=== PATIENT | male | born 1975 | race American Indian/Alaskan Native ===

== ENCOUNTER 2018-10-08 11:45 | Inpatient (IN) | payer MEDICAID ==
[2018-10-08] MEDS ORDERED: APRESOLINE IV ONE ×2 (12:57→15:27)
[2018-10-08] MEDS ORDERED: DUONEB *Not for PRN Use IH ONE (12:57)
[2018-10-08] MEDS ORDERED: SOLU-Medrol IV ONE (12:57)
--- NOTE | 2018-10-08 13:10 | Emergency Department Report ---
HPI - General Chief Complaint: Dyspnea/Respdistress Time Seen by Provider: 10/08/18 12:34 - HPI HPI: 43-year-old male presents to the emergency department, sent in by his primary care office, with complaint of shortness of breath. Patient has a past medical history of hypertension, asthma, obstructive sleep apnea, hyperlipidemia, diabetes, CHF and morbid obesity. He says that he does not have a CPAP machine for his sleep apnea. The patient's been dealing with a four-day history of shortness of breath and Dry and productive cough. He denies any fever, chest pain, back pain, nausea, vomiting or diaphoresis. He has not taken anything for her symptoms prior to presentation. He says that he has been compliant with his blood pressure medications but arrives with a very elevated blood pressure. His primary care physician is Page Atkins NP, and his cupola patcher helper is Dr Wills. ED Past Medical Hx - Past Medical History Hx Hypertension: Yes Hx Congestive Heart Failure: Yes Hx Diabetes: Yes Hx Asthma: Yes Hx COPD: No Hx HIV: No Additional medical history: reflux conjunctivitis 2 years ago., obesity, sleep apnea - Social History Smoking Status: Former Smoker Substance Use Type: None - Medications Home Medications: Home Medications Medication Instructions Recorded Confirmed Last Taken Type Aspirin EC [Aspirin Enteric Coated 81 mg PO QDAY #30 tablet 07/22/18 Unknown Rx TAB] AtorvaSTATin [Lipitor] 40 mg PO QHS #30 tablet 07/22/18 Unknown Rx Carvedilol [Coreg] 12.5 mg PO BID #60 tablet 07/22/18 Unknown Rx Furosemide [Lasix TAB] 60 mg PO QDAY #30 tablet 07/22/18 Unknown Rx Lantus 10 units SQ DAILY 30 Days 07/22/18 Unknown Rx Lisinopril [Zestril TAB] 20 mg PO QDAY #30 tablet 07/22/18 Unknown Rx Meloxicam 15 mg PO DAILY #5 tablet 07/22/18 Unknown Rx Metformin HCl [Glucophage] 1,000 mg PO BID #60 tablet 07/22/18 Unknown Rx Potassium Chloride [K-Dur] 20 meq PO QDAY #30 tablet 07/22/18 Unknown Rx Pregabalin [Lyrica] 200 mg PO BID #60 capsule 07/22/18 Unknown Rx Ranitidine HCl [Heartburn Relief] 150 mg PO BID #60 tablet 07/22/18 Unknown Rx hydroCHLOROthiazide [HCTZ] 25 mg PO QDAY #30 tablet 07/22/18 Unknown Rx ED Review of Systems ROS: Stated complaint: SOB Other details as noted in HPI Comment: All other systems reviewed and negative Constitutional: denies: chills, fever Eyes: denies: eye pain, vision change ENT: denies: ear pain, throat pain Respiratory: cough, shortness of breath Cardiovascular: edema. denies: chest pain Gastrointestinal: denies: abdominal pain, vomiting Genitourinary: denies: dysuria, discharge Musculoskeletal: denies: back pain, arthralgia Skin: denies: rash, lesions Neurological: denies: weakness, numbness Physical Exam - Physical Exam Vital Signs: Vital Signs 10/08/18 12:34 Pulse Rate 90 Respiratory 26 H Rate Blood Pressure 185/89 O2 Sat by Pulse 96 Oximetry Physical Exam: GENERAL: The patient is well-developed well-nourished. HEENT: Normocephalic. Atraumatic. Patient has moist mucous membranes. EYES: Extraocular motions are intact. Pupils are equal and reactive to light bilaterally. NECK: Supple. Trachea is midline. CHEST/LUNGS: Coarse breath sounds. There is tachypnea but no exertion muscle use. There is no respiratory distress noted. HEART/CARDIOVASCULAR: Regular. There is no tachycardia. There is no obvious murmur. ABDOMEN: Abdomen is soft, nontender. Patient has normal bowel sounds. Morbidly obese habitus. SKIN: Moderate bilateral lower extremity distal edema. NEURO: The patient is awake, alert, and oriented. The patient is cooperative. The patient has no focal neurologic deficits. The patient has normal speech. MUSCULOSKELETAL: There is no tenderness or deformity. There is no limitation range of motion. There is no evidence of acute injury. ED Course Vital Signs 10/08/18 12:34 Pulse Rate 90 Respiratory 26 H Rate Blood Pressure 185/89 O2 Sat by Pulse 96 Oximetry ED Medical Decision Making - Lab Data Result diagrams: 10/08/18 13:07 10/08/18 13:07 - EKG Data -: EKG Interpreted by Me EKG shows normal: sinus rhythm, axis (left axis deviation), intervals, QRS complexes (Q waves to the septal leads), ST-T waves Rate: normal - EKG Data When compared to previous EKG there are: no significant change Interpretation: unchanged when compared t (07/17/18) - Radiology Data Radiology results: report reviewed, image reviewed interpreted by me: Chest x-ray shows some pulmonary vascular congestion and some cardiomegaly. No obvious pneumonia. No pneumothorax. CTA CHEST: HISTORY: Short of breath. COMPARISON: none. TECHNIQUE: Helical CT in 1.25mm intervals following IV contrast. Pulmonary embolus protocol. Sagittal and coronal reformatted images. Rotational MIP images. FINDINGS: Contrast bolus is satisfactory. No pulmonary embolus is identified. Thyroid gland: Normal. Tracheobronchial tree: Normal. Esophagus: Normal. Heart: Normal. Pericardium: Normal. Mediastinum: Normal. Lung Seay: Normal. Pleural Spaces: Normal. Musculoskeletal: Normal. IMPRESSION: No evidence for pulmonary embolus. Unremarkable CT chest with contrast. Transcribed By: TTR Dictated By: SHONA MELTON JR, MD Electronically Authenticated By: SHONA MELTON JR, MD Signed Date/Time: 10/08/18 5482 - Medical Decision Making This patient presents to the emergency department with a complaint of shortness of breath and lower extremity swelling. Labs show a BNP of 1100 and a slightly elevated and equivocal d-dimer. Chest x-ray showed some pulmonary vascular congestion but no obvious pneumonia and no pneumothorax. CT angiography of the chest did not show any pulmonary embolism, dissection, aneurysm, or any other acute process. The patient was given some steroids, breathing treatments, Lasix for diuresis. The patient is unable to do any exertion, even getting up from the bed, without having worsening tachypnea and worsening respiratory status. He does not appear to be in a state where he would be able to be functional or complete any ADLs. The patient also presents with very elevated blood pressure and it has remained elevated despite the hydralazine and diuresis. For these reasons, patient will be admitted to hospital for further evaluation and treatment and was except for admission by hospitalist service. - Differential Diagnosis CHF, COPD, Pneumonia, PE Critical Care Time: No Critical care attestation.: If time is entered above; I have spent that time in minutes in the direct care of this critically ill patient, excluding procedure time. ED Disposition Clinical Impression: Bronchospasm, Morbid obesity, Hypertensive urgency, Obesity hypoventilation syndrome Congestive heart failure Qualifiers: Heart failure type: diastolic Heart failure chronicity: acute Qualified Code(s): I50.31 - Acute diastolic (congestive) heart failure Dyspnea Qualifiers: Dyspnea type: shortness of breath Qualified Code(s): R06.02 - Shortness of breath; R06.00 - Dyspnea, unspecified; R06.01 - Orthopnea Disposition: OP ADMIT IP TO THIS HOSP Is pt being admited?: Yes Condition: Fair Referrals: ELIANA HENSON MD [Primary Care Provider] - 3-5 Days Time of Disposition: 17:39
[2018-10-08 13:17] LABS: Basophils # (Auto) 0.1 K/mm3 (0.0-0.1); Basophils % (Auto) 1.4 % (0.0-1.8); Eosinophils # (Auto) 0.2 K/mm3 (0.0-0.4); Eosinophils % (Auto) 2.3 % (0.0-4.3); Hematocrit 43.7 % (35.5-45.6); Hemoglobin 14.3 gm/dl (11.8-15.2); Lymphocytes % (Auto) 22.3 % (13.4-35.0); Mean Corpuscular HGB Conc 33 % (32-34); Mean Corpuscular Volume 90 fl (84-94); Monocytes # (Auto) 0.7 K/mm3 (0.0-0.8); Monocytes % (Auto) 7.4 % (0.0-7.3); Platelet Count 249 K/mm3 (140-440); Red Blood Count 4.87 M/mm3 (3.65-5.03); Red Cell Distribution Width 15.7 % (13.2-15.2)
[2018-10-08 13:33] LABS: INR 0.98 (0.87-1.13)
[2018-10-08 13:34] LABS: Partial Thromboplastin Time 27.7 Sec. (24.2-36.6)
[2018-10-08 13:46] LABS: Alanine Aminotransferase 39 units/L (7-56); Albumin 3.6 g/dL (3.9-5); BUN/Creatinine Ratio 14; Blood Urea Nitrogen 14 mg/dL (9-20); Calcium 9.8 mg/dL (8.4-10.2); Hemolysis Index 5
--- NOTE | 2018-10-08 13:52 | XRay Report ---
AP CHEST: HISTORY: Dyspnea Borderline to mild cardiomegaly and pulmonary venous congestion appear relatively stable since 07/16/18. Lungs are clear. No evidence for infiltrate, large pleural effusion or pneumothorax. IMPRESSION: Borderline heart size and pulmonary veins. No CHF.
[2018-10-08] MEDS ORDERED: LASIX IV ONE (14:48)
--- NOTE | 2018-10-08 14:59 | Cat Scan Report ---
CTA CHEST: HISTORY: Short of breath. COMPARISON: none. TECHNIQUE: Helical CT in 1.25mm intervals following IV contrast. Pulmonary embolus protocol. Sagittal and coronal reformatted images. Rotational MIP images. FINDINGS: Contrast bolus is satisfactory. No pulmonary embolus is identified. Thyroid gland: Normal. Tracheobronchial tree: Normal. Esophagus: Normal. Heart: Normal. Pericardium: Normal. Mediastinum: Normal. Lung Seay: Normal. Pleural Spaces: Normal. Musculoskeletal: Normal. IMPRESSION: No evidence for pulmonary embolus. Unremarkable CT chest with contrast.
[2018-10-08] MEDS ORDERED: KIONEX PO ONE (15:27)
--- NOTE | 2018-10-08 16:12 | History and Physical Report ---
History of Present Illness Chief complaint: I just cant breathe History of present illness: 43 YO Male with MO, DM, Obesity Hypoventilation, Systolic CHF, HTN, Asthma, Nicotine Dependence presents to ED for evaluation. Pt states that he has experienced shortness of breath, and bilateral lower extremity edema over the past 4 days with worsening symptoms over the same time frame. Pt was seen and evaluated by his PCP today and found to have worsening of the aforementioned symptoms. Pt acknowledges Orthopnea/PND, Decreased exercise tolerance, Dypsnea on exertion, Dypsnea at rest, Leg Edema, as well as shortness of breath. Pt instructed to seek care at [facility]. Pt transported to [facility]. Pt seen and evaluated in ED and found to have Acute Respiratory Failure as well as symptoms consistent with CHF Decompensation. Pt admitted to telemetry. Cardiology consulted in ED. Past History Past Medical History: diabetes, heart failure, hypertension, other (Asthma, [place], MO) Past Surgical History: No surgical history, Other (reviewed) Social history: . denies: smoking, alcohol abuse, prescription drug abuse Family history: CAD, diabetes, hypertension Medications and Allergies Allergies Allergy/AdvReac Type Severity Reaction Status Date / Time No Known Allergies Allergy Verified 10/08/18 12:33 Home Medications Medication Instructions Recorded Confirmed Last Taken Type Aspirin EC [Aspirin Enteric Coated 81 mg PO QDAY #30 tablet 07/22/18 Unknown Rx TAB] AtorvaSTATin [Lipitor] 40 mg PO QHS #30 tablet 07/22/18 Unknown Rx Carvedilol [Coreg] 12.5 mg PO BID #60 tablet 07/22/18 Unknown Rx Furosemide [Lasix TAB] 60 mg PO QDAY #30 tablet 07/22/18 Unknown Rx Lantus 10 units SQ DAILY 30 Days 07/22/18 Unknown Rx Lisinopril [Zestril TAB] 20 mg PO QDAY #30 tablet 07/22/18 Unknown Rx Meloxicam 15 mg PO DAILY #5 tablet 07/22/18 Unknown Rx Metformin HCl [Glucophage] 1,000 mg PO BID #60 tablet 07/22/18 Unknown Rx Potassium Chloride [K-Dur] 20 meq PO QDAY #30 tablet 07/22/18 Unknown Rx Pregabalin [Lyrica] 200 mg PO BID #60 capsule 07/22/18 Unknown Rx Ranitidine HCl [Heartburn Relief] 150 mg PO BID #60 tablet 07/22/18 Unknown Rx hydroCHLOROthiazide [HCTZ] 25 mg PO QDAY #30 tablet 07/22/18 Unknown Rx Review of Systems Constitutional: no weight loss, no weight gain, no fever, no chills Ears, nose, mouth and throat: no ear pain, no ear discharge, no tinnitis, no decreased hearing, no nose pain Cardiovascular: chest pain, orthopnea, shortness of breath, dyspnea on exertion, paroxysmal nocturnal dyspnea, leg edema, decreased exercise tolerance, no palpitations Respiratory: no cough, no cough with sputum, no excessive sputum, no hemoptysis Gastrointestinal: no abdominal pain, no nausea, no vomiting, no diarrhea, no constipation Genitourinary Male: no hematuria, no flank pain, no discharge, no urinary frequency, no urinary hesitancy Rectal: no pain, no incontinence, no bleeding Musculoskeletal: no neck stiffness, no neck pain, no shooting arm pain, no arm numbness/tingling Integumentary: no rash, no pruritis, no redness, no sores, no wounds Neurological: no head injury, no transient paralysis, no paralysis, no weakness, no parathesias, no numbness Psychiatric: no anxiety, no memory loss, no change in sleep habits, no sleep disturbances, no insomnia Endocrine: no cold intolerance, no heat intolerance, no polyphagia, no excessive thirst, no polydipsia Hematologic/Lymphatic: no easy bruising, no easy bleeding, no lymphadenopathy, no lymphedema Allergic/Immunologic: no urticaria, no allergic rhinitis, no wheezing, no persistent infections, no anaphylaxis Exam - Constitutional Vitals: Temp Pulse Resp BP Pulse Ox 78 22 208/114 99 10/08/18 15:49 10/08/18 15:14 10/08/18 15:49 10/08/18 15:14 General appearance: Present: mild distress, obese - EENT Eyes: Present: PERRL ENT: hearing intact, clear oral mucosa - Neck Neck: Present: supple, normal ROM - Respiratory Respiratory effort: labored Respiratory: bilateral: diminished, rhonchi - Cardiovascular Heart Sounds: Present: S1 & S2. Absent: rub, click - Extremities Extremity abnormal: edema Peripheral Pulses: within normal limits - Abdominal General gastrointestinal: Present: soft, non-tender, non-distended, normal bowel sounds Male genitourinary: Present: normal - Integumentary Integumentary: Present: clear, warm, dry - Musculoskeletal Musculoskeletal: gait normal, strength equal bilaterally - Psychiatric Psychiatric: appropriate mood/affect, intact judgment & insight Results - Labs CBC & Chem 7: 10/08/18 13:07 10/08/18 13:07 Labs: Abnormal lab results 10/08/18 10/08/18 10/08/18 Range/Units 13:07 13:07 13:07 RDW 15.7 H (13.2-15.2) % Dundy % (Auto) 7.4 H (0.0-7.3) % D-Dimer 259.37 H (0-234) ng/mlDDU Potassium 5.5 H (3.6-5.0) mmol/L Chloride 95.7 L (98-107) mmol/L Carbon Dioxide 31 H (22-30) mmol/L Glucose 140 H (75-100) mg/dL NT-Pro-B Natriuret Pep (0-450) pg/mL Albumin 3.6 L (3.9-5) g/dL 10/08/18 Range/Units 13:07 RDW (13.2-15.2) % Dundy % (Auto) (0.0-7.3) % D-Dimer (0-234) ng/mlDDU Potassium (3.6-5.0) mmol/L Chloride (98-107) mmol/L Carbon Dioxide (22-30) mmol/L Glucose (75-100) mg/dL NT-Pro-B Natriuret Pep 1191 H (0-450) pg/mL Albumin (3.9-5) g/dL Assessment and Plan - Patient Problems (1) Congestive heart failure Current Visit: Yes Status: Acute Qualifiers: Heart failure type: diastolic Heart failure chronicity: acute Qualified Code(s): I50.31 - Acute diastolic (congestive) heart failure Plan to address problem: Admit to telemetry, strict I/O, daily weight, BNP, D dimer, afterload reduction, cardiology consulted, Echo reviewed, diuresis, chest x ray. (2) Hyperkalemia Current Visit: Yes Status: Acute Plan to address problem: hold potassium therapy, lasix therapy, repeat bmp, no EKG changes (3) Obesity hypoventilation syndrome Current Visit: Yes Status: Acute Plan to address problem: Supplemental oxygen, nebulizer therapy, early ambulation, NIPPV as clinically indicated, chest x ray. (4) Acute and chronic respiratory failure Current Visit: No Status: Acute Qualifiers: Respiratory failure complication: hypercapnia Qualified Code(s): J96.22 - Acute and chronic respiratory failure with hypercapnia Plan to address problem: Supplemental oxygen, nebulizer therapy, CT chest, chest x ray, pulse oximetry. (5) DVT prophylaxis Current Visit: No Status: Acute Plan to address problem: SCD to BLE while in bed.
[2018-10-08] MEDS ORDERED: PROVENTIL IH PRN (16:15)
[2018-10-08] MEDS ORDERED: ZOFRAN IV PRN (16:15)
[2018-10-08] MEDS ORDERED: APRESOLINE IV PRN (19:46)
[2018-10-08] MEDS ORDERED: APRESOLINE ONE (19:53)
[2018-10-08] MEDS ORDERED: PERCOCET 5/325 PO ONE (20:07)
[2018-10-08] MEDS ORDERED: PERCOCET 5/325 ONE (20:12)
[2018-10-08] MEDS ORDERED: NITRO-BID 2% TP ONE ×2 (21:28→21:35)
[2018-10-08] MEDS ORDERED: NON-FORMULARY (Pregabalin [Lyrica] 200 MG) PO SCH (22:00)
[2018-10-08] MEDS ORDERED: RANITIDINE HCL 150 MG PO SCH (22:00)
[2018-10-08] MEDS: LYRICA PO SCH (23:53)
[2018-10-09] MEDS: COREG PO SCH ×3 (00:04→21:24)
[2018-10-09] MEDS: PEPCID PO SCH ×3 (00:05→21:24)
[2018-10-09] MEDS: LYRICA PO SCH ×7 (00:05→21:23)
[2018-10-09] MEDS: SODIUM CHLORIDE FLUSH SYRINGE 10 ML IV SCH ×3 (00:08→21:24)
[2018-10-09] MEDS ORDERED: KIONEX PO ONE (01:00)
[2018-10-09] MEDS: TYLENOL PO PRN ×2 (05:05→19:23)
[2018-10-09] MEDS: LASIX IV SCH ×2 (05:05→18:52)
[2018-10-09] MEDS: SODIUM CHLORIDE FLUSH SYRINGE 10 ML IV PRN ×2 (05:09→10:34)
[2018-10-09] MEDS ORDERED: K-DUR PO SCH (10:00)
[2018-10-09] MEDS ORDERED: LANTUS 10 UNIT SQ SCH (10:00)
[2018-10-09] MEDS ORDERED: NON-FORMULARY (Meloxicam [Meloxicam] 15 MG) PO SCH (10:00)
[2018-10-09] MEDS: HALFPRIN EC PO SCH (10:32)
[2018-10-09] MEDS: MOBIC PO SCH (10:51)
[2018-10-09] MEDS: LANTUS SUB-Q SCH (10:54)
[2018-10-09] MEDS: HCTZ PO SCH (10:55)
[2018-10-09] MEDS: ZESTRIL PO SCH (10:57)
--- NOTE | 2018-10-09 17:31 | Progress Note ---
Assessment and Plan - Patient Problems (1) Congestive heart failure Current Visit: Yes Status: Acute Qualifiers: Heart failure type: diastolic Heart failure chronicity: acute Qualified Code(s): I50.31 - Acute diastolic (congestive) heart failure Plan to address problem: IV Lasix and ECHO for EF (2) Hyperkalemia Current Visit: Yes Status: Acute Plan to address problem: hold potassium therapy, (3) Obesity hypoventilation syndrome Current Visit: Yes Status: Acute Plan to address problem: Supplemental oxygen, nebulizer therapy, early ambulation, NIPPV as clinically indicated, chest x ray. (4) Acute and chronic respiratory failure Current Visit: No Status: Acute Qualifiers: Respiratory failure complication: hypercapnia Qualified Code(s): J96.22 - Acute and chronic respiratory failure with hypercapnia Plan to address problem: Supplemental oxygen, nebulizer therapy, CT chest, chest x ray, pulse oximetry. (5) DVT prophylaxis Current Visit: No Status: Acute Plan to address problem: SCD to BLE while in bed. Subjective Date of service: 10/09/18 Principal diagnosis: CHF exacerbation Interval history: Some improvement Objective - Constitutional Vitals: Vital Signs - 12hr 10/09/18 10/09/18 10/09/18 07:59 08:34 12:20 Temperature 97.9 F 98.6 F Pulse Rate 100 H 95 H Pulse Rate [ 86 Left Radial] Respiratory 20 24 24 Rate Blood Pressure 151/78 145/81 O2 Sat by Pulse 96 93 94 Oximetry 10/09/18 17:02 Temperature 97.5 F L Pulse Rate 97 H Pulse Rate [ Left Radial] Respiratory 24 Rate Blood Pressure 123/70 O2 Sat by Pulse 96 Oximetry General appearance: Present: mild distress, well-nourished - EENT Eyes: PERRL, EOM intact ENT: hearing intact, clear oral mucosa Ears: bilateral: normal - Neck Neck: supple, normal ROM - Respiratory Respiratory effort: normal Respiratory: bilateral: CTA - Breasts Breasts: normal - Cardiovascular Heart rate: 88 Rhythm: regular Heart Sounds: Present: S1 & S2. Absent: gallop, rub Extremities: pulses intact, No edema, normal color, Full ROM Extremity abnormal: edema - Gastrointestinal General gastrointestinal: Present: soft, non-tender, non-distended, normal bowel sounds - Genitourinary Male genitourinary: normal - Integumentary Integumentary: clear, warm, dry - Musculoskeletal Musculoskeletal: 1, strength equal bilaterally - Neurologic Neurologic: moves all extremities - Psychiatric Psychiatric: memory intact, appropriate mood/affect, intact judgment & insight - Labs CBC & Chem 7: 10/08/18 13:07 10/09/18 19:59 Labs: Abnormal lab results 10/08/18 10/09/18 10/09/18 Range/Units 20:20 07:33 12:26 POC Glucose 177 H 153 H 151 H (70-105) 10/09/18 Range/Units 17:08 POC Glucose 134 H (70-105)
[2018-10-09 20:30] LABS: BUN/Creatinine Ratio 18; Blood Urea Nitrogen 27 mg/dL (9-20); Calcium 8.8 mg/dL (8.4-10.2); Hemolysis Index 26
[2018-10-09] MEDS: APRESOLINE IV PRN (21:26)
[2018-10-10] MEDS: LASIX IV SCH ×2 (05:55→17:09)
[2018-10-10] MEDS: SODIUM CHLORIDE FLUSH SYRINGE 10 ML IV PRN (05:55)
[2018-10-10] MEDS: TYLENOL PO PRN ×2 (07:50→13:48)
[2018-10-10] MEDS: PEPCID PO SCH ×2 (09:52→22:21)
[2018-10-10] MEDS: LYRICA PO SCH ×4 (09:53→22:21)
[2018-10-10] MEDS: COREG PO SCH ×2 (09:54→22:21)
[2018-10-10] MEDS: HALFPRIN EC PO SCH (09:55)
[2018-10-10] MEDS: ZESTRIL PO SCH (09:55)
[2018-10-10] MEDS: MOBIC PO SCH (09:55)
[2018-10-10] MEDS: HCTZ PO SCH (09:55)
[2018-10-10] MEDS: SODIUM CHLORIDE FLUSH SYRINGE 10 ML IV SCH ×2 (09:56→22:23)
[2018-10-10] MEDS: LANTUS SUB-Q SCH (09:57)
--- NOTE | 2018-10-10 14:56 | Progress Note ---
Assessment and Plan - Patient Problems (1) Congestive heart failure Current Visit: Yes Status: Acute Qualifiers: Heart failure type: diastolic Heart failure chronicity: acute Qualified Code(s): I50.31 - Acute diastolic (congestive) heart failure Plan to address problem: IV Lasix and ECHO for EF (2) Hyperkalemia Current Visit: Yes Status: Acute Plan to address problem: hold potassium therapy, Treated (3) Obesity hypoventilation syndrome Current Visit: Yes Status: Acute Plan to address problem: Supplemental oxygen, nebulizer therapy, early ambulation, NIPPV as clinically indicated, chest x ray. (4) Acute and chronic respiratory failure Current Visit: No Status: Acute Qualifiers: Respiratory failure complication: hypercapnia Qualified Code(s): J96.22 - Acute and chronic respiratory failure with hypercapnia Plan to address problem: Supplemental oxygen, nebulizer therapy, CT chest, chest x ray, pulse oximetry. (5) DVT prophylaxis Current Visit: No Status: Acute Plan to address problem: SCD to BLE while in bed. Subjective Date of service: 10/10/18 Principal diagnosis: CHF exacerbation Interval history: Some improvement Objective - Constitutional Vitals: Vital Signs - 12hr 10/10/18 10/10/18 10/10/18 03:53 04:45 08:15 Temperature 98.4 F 97.7 F Pulse Rate 84 90 81 Pulse Rate [ Apical] Pulse Rate [ Left Radial] Pulse Rate [ Right Radial] Respiratory 20 22 Rate Blood Pressure 118/80 157/81 O2 Sat by Pulse 86 95 Oximetry 10/10/18 10/10/18 10/10/18 09:54 09:55 10:00 Temperature Pulse Rate 81 81 Pulse Rate [ 81 Apical] Pulse Rate [ 81 Left Radial] Pulse Rate [ 81 Right Radial] Respiratory 19 Rate Blood Pressure 126/56 126/56 O2 Sat by Pulse 98 Oximetry 10/10/18 11:54 Temperature 98.0 F Pulse Rate 84 Pulse Rate [ Apical] Pulse Rate [ Left Radial] Pulse Rate [ Right Radial] Respiratory 22 Rate Blood Pressure 139/76 O2 Sat by Pulse 92 Oximetry General appearance: Present: mild distress - EENT Eyes: PERRL, EOM intact ENT: hearing intact, clear oral mucosa Ears: bilateral: normal - Neck Neck: supple, normal ROM - Respiratory Respiratory effort: normal Respiratory: bilateral: CTA, rales (scattered rales) - Breasts Breasts: normal - Cardiovascular Heart rate: 78 Rhythm: regular Heart Sounds: Present: S1 & S2. Absent: gallop, rub Extremities: pulses intact, No edema, normal color, Full ROM - Gastrointestinal General gastrointestinal: Present: soft, non-tender, non-distended, normal bowel sounds - Genitourinary Male genitourinary: normal - Integumentary Integumentary: clear, warm, dry - Musculoskeletal Musculoskeletal: 1, strength equal bilaterally - Neurologic Neurologic: moves all extremities - Psychiatric Psychiatric: memory intact, appropriate mood/affect, intact judgment & insight - Labs CBC & Chem 7: 10/08/18 13:07 10/09/18 19:59 Labs: Abnormal lab results 10/09/18 10/09/18 10/09/18 Range/Units 17:08 19:59 21:38 Chloride 95.7 L (98-107) mmol/L BUN 27 H (9-20) mg/dL Glucose 184 H (75-100) mg/dL POC Glucose 134 H 162 H (70-105) 10/10/18 Range/Units 07:20 Chloride (98-107) mmol/L BUN (9-20) mg/dL Glucose (75-100) mg/dL POC Glucose 152 H (70-105)
[2018-10-10] MEDS: NORCO 7.5/325 PO PRN (16:33)
[2018-10-11] MEDS: LASIX IV SCH ×2 (05:54→17:26)
[2018-10-11] MEDS: NORCO 7.5/325 PO PRN ×2 (05:54→14:21)
--- NOTE | 2018-10-11 08:12 | Progress Note ---
Assessment and Plan 1) Congestive heart failure Current Visit: Yes Status: Acute Qualifiers: Heart failure type: diastolic Heart failure chronicity: acute Qualified Code(s): I50.31 - Acute diastolic (congestive) heart failure Plan to address problem: stick Is and Os, BB, ACEI, statin, IV Lasix and ECHO for EF (2) Hyperkalemia - corrected Current Visit: Yes Status: Acute Plan to address problem: hold potassium therapy, Treated (3) Obesity hypoventilation syndrome Current Visit: Yes Status: Acute Plan to address problem: Supplemental oxygen, nebulizer therapy, early ambulation, NIPPV as clinically indicated, chest x ray. (4) Acute and chronic respiratory failure Current Visit: No Status: Acute Qualifiers: Respiratory failure complication: hypercapnia Qualified Code(s): J96.22 - Acute and chronic respiratory failure with hypercapnia Plan to address problem: Supplemental oxygen, nebulizer therapy, CT chest, chest x ray, pulse oximetry. (5) DVT prophylaxis Current Visit: No Status: Acute Plan to address problem: SCD to BLE while in bed. susan Subjective Date of service: 10/11/18 Principal diagnosis: CHF exacerbation acute on chronic respiratory failure Interval history: Patient seen and examined. Lying quietly in bed. Still short of breath. Denies any fever. No chest pain. Objective - Exam Narrative Exam: Constitutional: Well-nourished well-developed. In no distress Head: Normocephalic atraumatic Eyes: Pupils are equal round and reactive to light Nose: No enlarged turbinates, no septal deviation. Mouth: Moist mucous membranes. Neck: Supple no thyromegaly. No bruit. No JVD Heart: Regular rate and rhythm, S1-S2 normal. No rubs murmurs or gallop Lungs: Increased breath sounds bilaterally. no rales or rhonchi Abdomen: Soft, nontender. Bowel sound are present. Extremities: No edema, no cyanosis, no clubbing. Neuro: Alert oriented Oriented x3. No focal sensory or motor deficit. Skin: No rashes or hyperpigmented spots Musculoskeletal system: No joint pain or swelling Hematological: No petechia or subcutanous hemorrhages. Immunological: No multiple septic spots on the skin Lymphatic: No generalized lymphadenopathy Psychiatry: Euthymic. Calm. - Constitutional Vitals: Vital Signs - 12hr 10/10/18 10/10/18 10/10/18 21:40 22:00 22:21 Pulse Rate 88 Respiratory 20 Rate Blood Pressure 145/71 O2 Sat by Pulse 95 Oximetry 10/11/18 10/11/18 00:05 04:00 Pulse Rate 90 77 Respiratory 20 Rate Blood Pressure O2 Sat by Pulse 97 Oximetry - Labs CBC & Chem 7: 10/08/18 13:07 10/09/18 19:59 Labs: Abnormal lab results 10/10/18 10/10/18 10/10/18 Range/Units 07:20 11:59 17:06 POC Glucose 152 H 150 H 144 H (70-105)
--- NOTE | 2018-10-11 09:30 | Consultation ---
History of Present Illness Consult date: 10/11/18 Consult reason: congestive heart failure History of present illness: Patient is a 43 year old morbidly obese male with a history of hypertension, sleep apnea . He also has a dilated cardiomyopathy revealed by an echocardiogram 3 months ago that documents a decreased left ventricular systolic function, ejection fraction 35-40%. Patient is not a candidate for stress testing due to weight limitations but is awaiting an outpatient PET scan. Patient was admitted to this hospital 3 days ago with shortness of breath, admitted with CHF exacerbation and obesity hypoventilation syndrome. Patient denies chest pain and admits his breathing has improved and lower extremity edema is less. A 12 lead EKG is sinus rhythm with left axis deviation. Past History Past Medical History: diabetes, heart failure, hypertension, other (Asthma, YVETTE, obesity) Social history: . denies: smoking, alcohol abuse, prescription drug abuse Family history: CAD, diabetes, hypertension Medications and Allergies Allergies Allergy/AdvReac Type Severity Reaction Status Date / Time No Known Allergies Allergy Verified 10/08/18 12:33 Home Medications Medication Instructions Recorded Confirmed Last Taken Type Aspirin EC [Aspirin Enteric Coated 81 mg PO QDAY #30 tablet 07/22/18 10/08/18 Unknown Rx TAB] AtorvaSTATin [Lipitor] 40 mg PO QHS #30 tablet 07/22/18 10/08/18 Unknown Rx Carvedilol [Coreg] 12.5 mg PO BID #60 tablet 07/22/18 10/08/18 Unknown Rx Furosemide [Lasix TAB] 60 mg PO QDAY #30 tablet 07/22/18 10/08/18 Unknown Rx Lantus 10 units SQ DAILY 30 Days 07/22/18 10/08/18 Unknown Rx Lisinopril [Zestril TAB] 20 mg PO QDAY #30 tablet 07/22/18 10/08/18 Unknown Rx Meloxicam 15 mg PO DAILY #5 tablet 07/22/18 10/08/18 Unknown Rx Metformin HCl [Glucophage] 1,000 mg PO BID #60 tablet 07/22/18 10/08/18 Unknown Rx Potassium Chloride [K-Dur] 20 meq PO QDAY #30 tablet 07/22/18 10/08/18 Unknown Rx Pregabalin [Lyrica] 200 mg PO BID #60 capsule 07/22/18 10/08/18 Unknown Rx Ranitidine HCl [Heartburn Relief] 150 mg PO BID #60 tablet 07/22/18 10/08/18 Unknown Rx hydroCHLOROthiazide [HCTZ] 25 mg PO QDAY #30 tablet 07/22/18 10/08/18 Unknown Rx Active Meds: Active Medications Acetaminophen (Tylenol) 650 mg PO Q4H PRN PRN Reason: Pain MILD(1-3)/Fever >100.5/PEPPER Last Admin: 10/10/18 13:48 Dose: 650 mg Documented by: Acetaminophen/Hydrocodone Bitart ([place] 7.5/325) 1 each PO BID PRN PRN Reason: Pain, Moderate (4-6) Last Admin: 10/11/18 05:54 Dose: 1 each Documented by: Albuterol (Proventil) 2.5 mg IH Q4HRT PRN PRN Reason: Shortness Of Breath Aspirin (Halfprin Ec) 81 mg PO QDAY [facility] Last Admin: 10/10/18 09:55 Dose: 81 mg Documented by: Atorvastatin Calcium (Lipitor) 40 mg PO QHS [facility] Last Admin: 10/10/18 22:21 Dose: 40 mg Documented by: Carvedilol (Coreg) 12.5 mg PO BID [facility] Last Admin: 10/10/18 22:21 Dose: 12.5 mg Documented by: Famotidine (Pepcid) 20 mg PO BID [facility] Last Admin: 10/10/18 22:21 Dose: 20 mg Documented by: Furosemide (Lasix) 40 mg IV 0600,1800 [facility] Last Admin: 10/11/18 05:54 Dose: 40 mg Documented by: Hydralazine HCl (Apresoline) 20 mg IV Q6HR PRN PRN Reason: Hypertension Last Admin: 10/09/18 21:26 Dose: 20 mg Documented by: Hydrochlorothiazide (Hctz) 25 mg PO QDAY [facility] Last Admin: 10/10/18 09:55 Dose: 25 mg Documented by: Insulin Glargine (Lantus) 10 units SUB-Q QDAY [facility] Last Admin: 10/10/18 09:57 Dose: 10 units Documented by: Lisinopril (Zestril) 20 mg PO QDAY [facility] Last Admin: 10/10/18 09:55 Dose: 20 mg Documented by: Meloxicam (Mobic) 15 mg PO QDAY [facility] Last Admin: 10/10/18 09:55 Dose: 15 mg Documented by: Ondansetron HCl (Zofran) 4 mg IV Q8H PRN PRN Reason: Nausea And Vomiting Pregabalin (Lyrica) 150 mg PO BID [facility] Last Admin: 10/10/18 22:21 Dose: 150 mg Documented by: Pregabalin (Lyrica) 50 mg PO BID [facility] Last Admin: 10/10/18 22:20 Dose: 50 mg Documented by: Sodium Chloride (Sodium Chloride Flush Syringe 10 Ml) 10 ml IV BID [facility] Last Admin: 10/10/18 22:23 Dose: 10 ml Documented by: Sodium Chloride (Sodium Chloride Flush Syringe 10 Ml) 10 ml IV PRN PRN PRN Reason: LINE FLUSH Last Admin: 10/10/18 05:55 Dose: 10 ml Documented by: Physical Examination Vital Signs Pulse Resp BP Pulse Ox 90 26 H 185/89 96 10/08/18 12:34 10/08/18 12:34 10/08/18 12:34 10/08/18 12:34 General appearance: no acute distress, obese HEENT: Positive: PERRL Neck: Positive: trachea midline Cardiac: Positive: Reg Rate and Rhythm Lungs: Positive: Decreased Breath Sounds Neuro: Positive: Grossly Intact Extremities: Absent: edema Results 10/08/18 13:07 10/09/18 19:59 Assessment and Plan Shortness of breath, multifactorial obesity hypoventilation syndrome sleep apnea CHF Hx of dilated CMP EF 35-40% 07/2018 not a candidate for stress testing due to weight limitations but is awaiting an outpatient PET scan. Hypertension
[2018-10-11] MEDS: ZESTRIL PO SCH (09:45)
[2018-10-11] MEDS: COREG PO SCH ×2 (09:45→21:25)
[2018-10-11] MEDS: HCTZ PO SCH (09:46)
[2018-10-11] MEDS: PEPCID PO SCH ×2 (09:46→21:25)
[2018-10-11] MEDS: MOBIC PO SCH (09:46)
[2018-10-11] MEDS: HALFPRIN EC PO SCH (09:46)
[2018-10-11] MEDS: LYRICA PO SCH ×4 (09:46→21:25)
[2018-10-11] MEDS: SODIUM CHLORIDE FLUSH SYRINGE 10 ML IV SCH ×2 (09:50→21:30)
[2018-10-11] MEDS: LANTUS SUB-Q SCH (09:51)
[2018-10-11] MEDS ORDERED: D50W (25GM) Syringe IV PRN (23:02)
[2018-10-11] MEDS: HumaLOG SUB-Q SCH (23:47)
[2018-10-12] MEDS: NORCO 7.5/325 PO PRN ×2 (06:47→22:08)
[2018-10-12] MEDS: LASIX IV SCH ×2 (06:47→16:59)
[2018-10-12 07:11] LABS: Basophils # (Auto) 0.1 K/mm3 (0.0-0.1); Basophils % (Auto) 1.3 % (0.0-1.8); Eosinophils # (Auto) 0.3 K/mm3 (0.0-0.4); Eosinophils % (Auto) 3.6 % (0.0-4.3); Hematocrit 46.6 % (35.5-45.6); Hemoglobin 14.6 gm/dl (11.8-15.2); Lymphocytes # (Auto) 1.9 K/mm3 (1.2-5.4); Lymphocytes % (Auto) 26.3 % (13.4-35.0); Mean Corpuscular HGB Conc 31 % (32-34); Mean Corpuscular Volume 91 fl (84-94); Monocytes # (Auto) 0.9 K/mm3 (0.0-0.8); Monocytes % (Auto) 12.5 % (0.0-7.3); Platelet Count 259 K/mm3 (140-440); Red Blood Count 5.14 M/mm3 (3.65-5.03); Red Cell Distribution Width 15.5 % (13.2-15.2)
[2018-10-12] MEDS ORDERED: HumaLOG SUB-Q SCH (07:30)
[2018-10-12 07:35] LABS: Alanine Aminotransferase 22 units/L (7-56); Albumin 3.7 g/dL (3.9-5); BUN/Creatinine Ratio 25; Blood Urea Nitrogen 32 mg/dL (9-20); Hemolysis Index 10
[2018-10-12] MEDS: HumaLOG SUB-Q SCH ×4 (08:29→22:24)
[2018-10-12] MEDS: HCTZ PO SCH (10:27)
[2018-10-12] MEDS: LYRICA PO SCH ×4 (10:27→22:05)
[2018-10-12] MEDS: MOBIC PO SCH (10:27)
[2018-10-12] MEDS: HALFPRIN EC PO SCH (10:27)
[2018-10-12] MEDS: COREG PO SCH ×2 (10:28→22:06)
[2018-10-12] MEDS: PEPCID PO SCH ×2 (10:28→22:06)
[2018-10-12] MEDS: LANTUS SUB-Q SCH (10:29)
[2018-10-12] MEDS: ZESTRIL PO SCH (10:33)
[2018-10-12] MEDS: SODIUM CHLORIDE FLUSH SYRINGE 10 ML IV SCH ×2 (10:33→22:24)
--- NOTE | 2018-10-12 12:04 | Progress Note ---
Assessment and Plan Shortness of breath, multifactorial obesity hypoventilation syndrome sleep apnea CHF Hx of dilated CMP EF 35-40% 07/2018 not a candidate for stress testing due to weight limitations but is awaiting an outpatient PET scan. Hypertension Recommendations: Pulmonary consultation for further assessment and management of obstructive sleep apnea. Continue medical therapy for dilated cardiomyopathy to include diuretics, afterload agents and oral antiplatelet therapy. Patient is scheduled for an outpatient cardiac PET scan. Stable cardiac marrero. Subjective Date of service: 10/12/18 Principal diagnosis: CHF exacerbation acute on chronic respiratory failure Interval history: Patient is resting in bed comfortably. He reports his breathing has somewhat improved. No distress noted. Objective Vital Signs Temp Pulse Resp BP Pulse Ox 10/12/18 11:59 75 10/12/18 09:44 96 10/12/18 02:51 97.7 F 84 20 147/90 71 L 10/11/18 23:58 98.4 F 79 22 148/81 93 10/11/18 21:25 80 180/84 10/11/18 20:15 97 10/11/18 20:00 84 10/11/18 19:57 80 94 10/11/18 19:56 98.4 F 86 20 180/84 92 10/11/18 18:18 98.0 F 86 20 135/69 94 10/11/18 12:29 98.1 F 72 22 152/92 93 - Physical Examination General: No Apparent Distress HEENT: Positive: PERRL Neck: Positive: trachea midline Cardiac: Positive: Reg Rate and Rhythm Lungs: Positive: Decreased Breath Sounds Neuro: Positive: Grossly Intact - Labs and Meds Cardiac Enzymes 10/12/18 Range/Units 06:09 AST 15 (5-40) units/L CBC 10/12/18 Range/Units 06:09 WBC 7.3 (4.5-11.0) K/mm3 RBC 5.14 H (3.65-5.03) M/mm3 Hgb 14.6 (11.8-15.2) gm/dl Hct 46.6 H (35.5-45.6) % Plt Count 259 (140-440) K/mm3 Lymph # 1.9 (1.2-5.4) K/mm3 [place] # 0.9 H (0.0-0.8) K/mm3 Eos # 0.3 (0.0-0.4) K/mm3 Baso # 0.1 (0.0-0.1) K/mm3 Comprehensive Metabolic Panel 10/12/18 Range/Units 06:09 Sodium 140 (137-145) mmol/L Potassium 5.6 H (3.6-5.0) mmol/L Chloride 96.6 L (98-107) mmol/L Carbon Dioxide 34 H (22-30) mmol/L BUN 32 H (9-20) mg/dL Creatinine 1.3 (0.8-1.5) mg/dL Glucose 247 H (75-100) mg/dL Calcium 9.0 (8.4-10.2) mg/dL AST 15 (5-40) units/L ALT 22 (7-56) units/L Alkaline Phosphatase 83 (35-129) units/L Total Protein 7.0 (6.3-8.2) g/dL Albumin 3.7 L (3.9-5) g/dL
--- NOTE | 2018-10-12 16:23 | Progress Note ---
Assessment and Plan Assessment and plan: 1) Congestive heart failure, history of dilated cardiomyopathy with ejection fraction of 35-40% - Strict Is and Os, BB, ACEI, statin, IV Lasix and ECHO for EF - Cardiology is following, and said he is stable cardiac-marrero (2) Hyperkalemia - corrected - Potassium this morning was 5.6 and given Kayexalate - We will check potassium tomorrow morning (3) Obesity hypoventilation syndrome Supplemental oxygen, nebulizer therapy, early ambulation, NIPPV as clinically indicated, chest x ray. Pulmonary consulted and a pending evaluation Patient needs CPAP (4) Acute and chronic respiratory failure; due to CHF and obesity hypoventilation syndrome Supplemental oxygen, nebulizer therapy. CTA is unremarkable DVT prophylaxis; SCD to BLE while in bed. lovenox Disposition; likely tomorrow after pulmonary evaluation. History Interval history: Patient was seen and evaluated this morning, patient is morbidly obese, no chest pain or shortness of breath. Hospitalist Physical - Physical exam Narrative exam: Not in cardiopulmonary distress. The patient is morbidly obese. Vital signs as documented. Head exam is unremarkable. No scleral icterus . Neck is without jugular venous distension, thyromegaly, or carotid bruits. Lungs are clear to auscultation. Cardiac exam reveals regular rate and Rhythm. llops. Abdominal exam reveals normal bowel sounds, no masses, no organomegaly and no aortic enlargement. Extremities trace bilateral lower extremity edema. 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 No focal weakness. - Constitutional Vitals: Temp Pulse Resp BP Pulse Ox 98.7 F 80 18 201/74 91 10/12/18 11:59 10/12/18 16:15 10/12/18 11:59 10/12/18 16:15 10/12/18 16:15 General appearance: Present: no acute distress, obese Results - Labs CBC & Chem 7: 10/12/18 06:09 10/12/18 06:09 Labs: Laboratory Last Values WBC 7.3 K/mm3 (4.5-11.0) 10/12/18 06:09 RBC 5.14 M/mm3 (3.65-5.03) H 10/12/18 06:09 Hgb 14.6 gm/dl (11.8-15.2) 10/12/18 06:09 Hct 46.6 % (35.5-45.6) H 10/12/18 06:09 MCV 91 fl (84-94) 10/12/18 06:09 MCH 28 pg (28-32) 10/12/18 06:09 MCHC 31 % (32-34) L 10/12/18 06:09 RDW 15.5 % (13.2-15.2) H 10/12/18 06:09 Plt Count 259 K/mm3 (140-440) 10/12/18 06:09 Lymph % (Auto) 26.3 % (13.4-35.0) 10/12/18 06:09 [place] % (Auto) 12.5 % (0.0-7.3) H 10/12/18 06:09 Eos % (Auto) 3.6 % (0.0-4.3) 10/12/18 06:09 Baso % (Auto) 1.3 % (0.0-1.8) 10/12/18 06:09 Lymph # 1.9 K/mm3 (1.2-5.4) 10/12/18 06:09 [place] # 0.9 K/mm3 (0.0-0.8) H 10/12/18 06:09 Eos # 0.3 K/mm3 (0.0-0.4) 10/12/18 06:09 Baso # 0.1 K/mm3 (0.0-0.1) 10/12/18 06:09 Seg Neutrophils % 56.3 % (40.0-70.0) 10/12/18 06:09 Seg Neutrophils # 4.1 K/mm3 (1.8-7.7) 10/12/18 06:09 PT 13.6 Sec. (12.2-14.9) 10/08/18 13:07 INR 0.98 (0.87-1.13) 10/08/18 13:07 APTT 27.7 Sec. (24.2-36.6) 10/08/18 13:07 D-Dimer 259.37 ng/mlDDU (0-234) H 10/08/18 13:07 Sodium 140 mmol/L (137-145) 10/12/18 06:09 Potassium 5.6 mmol/L (3.6-5.0) H 10/12/18 06:09 Chloride 96.6 mmol/L (98-107) L 10/12/18 06:09 Carbon Dioxide 34 mmol/L (22-30) H 10/12/18 06:09 Anion Gap 15 mmol/L 10/12/18 06:09 BUN 32 mg/dL (9-20) H 10/12/18 06:09 Creatinine 1.3 mg/dL (0.8-1.5) 10/12/18 06:09 Estimated GFR > 60 ml/min 10/12/18 06:09 BUN/Creatinine Ratio 25 % 10/12/18 06:09 Glucose 247 mg/dL (75-100) H 10/12/18 06:09 POC Glucose 144 (70-105) H 10/10/18 17:06 Calcium 9.0 mg/dL (8.4-10.2) 10/12/18 06:09 Magnesium 1.70 mg/dL (1.7-2.3) 10/08/18 13:07 Total Bilirubin 0.20 mg/dL (0.1-1.2) 10/12/18 06:09 AST 15 units/L (5-40) 10/12/18 06:09 ALT 22 units/L (7-56) 10/12/18 06:09 Alkaline Phosphatase 83 units/L (35-129) 10/12/18 06:09 Troponin T < 0.010 ng/mL (0.00-0.029) 10/08/18 13:07 NT-Pro-B Natriuret Pep 1191 pg/mL (0-450) H 10/08/18 13:07 Total Protein 7.0 g/dL (6.3-8.2) 10/12/18 06:09 Albumin 3.7 g/dL (3.9-5) L 10/12/18 06:09 Albumin/Globulin Ratio 1.1 % 10/12/18 06:09
[2018-10-12] MEDS ORDERED: KIONEX PO ONE (17:00)
[2018-10-12] MEDS: LOVENOX SUB-Q SCH (22:06)
[2018-10-12] MEDS: APRESOLINE IV PRN (22:07)
[2018-10-13] MEDS: LASIX IV SCH ×2 (05:23→18:03)
[2018-10-13 06:48] LABS: Basophils # (Auto) 0.1 K/mm3 (0.0-0.1); Basophils % (Auto) 1.2 % (0.0-1.8); Eosinophils # (Auto) 0.3 K/mm3 (0.0-0.4); Eosinophils % (Auto) 3.5 % (0.0-4.3); Hematocrit 46.2 % (35.5-45.6); Hemoglobin 14.5 gm/dl (11.8-15.2); Lymphocytes # (Auto) 2.2 K/mm3 (1.2-5.4); Lymphocytes % (Auto) 28.7 % (13.4-35.0); Mean Corpuscular HGB Conc 32 % (32-34); Mean Corpuscular Volume 91 fl (84-94); Monocytes # (Auto) 0.9 K/mm3 (0.0-0.8); Platelet Count 272 K/mm3 (140-440); Red Blood Count 5.07 M/mm3 (3.65-5.03); Red Cell Distribution Width 15.6 % (13.2-15.2)
[2018-10-13 07:24] LABS: BUN/Creatinine Ratio 25; Blood Urea Nitrogen 35 mg/dL (9-20); Calcium 8.9 mg/dL (8.4-10.2); Hemolysis Index 23
[2018-10-13] MEDS: HumaLOG SUB-Q SCH ×5 (09:19→22:47)
[2018-10-13] MEDS: HCTZ PO SCH (09:20)
[2018-10-13] MEDS: PEPCID PO SCH ×2 (09:20→22:13)
[2018-10-13] MEDS: ZESTRIL PO SCH (09:20)
[2018-10-13] MEDS: LANTUS SUB-Q SCH (09:20)
[2018-10-13] MEDS: MOBIC PO SCH (09:20)
[2018-10-13] MEDS: LYRICA PO SCH ×4 (09:20→22:13)
[2018-10-13] MEDS: HALFPRIN EC PO SCH (09:20)
[2018-10-13] MEDS: SODIUM CHLORIDE FLUSH SYRINGE 10 ML IV SCH ×2 (09:22→22:14)
[2018-10-13] MEDS: COREG PO SCH ×2 (09:38→22:14)
--- NOTE | 2018-10-13 11:01 | Progress Note ---
Assessment and Plan Shortness of breath, multifactorial obesity hypoventilation syndrome sleep apnea CHF Hx of dilated CMP EF 35-40% 07/2018 not a candidate for stress testing due to weight limitations but is awaiting an outpatient PET scan. Hypertension Recommendations: Continue medical therapy for dilated cardiomyopathy to include diuretics, afterload agents and oral antiplatelet therapy. Patient is scheduled for an outpatient cardiac PET scan. Stable cardiac marrero for discharge. Subjective Date of service: 10/13/18 Principal diagnosis: CHF exacerbation acute on chronic respiratory failure Interval history: Patient is resting in bed comfortably. He has no complaints. Objective Vital Signs Temp Pulse Resp BP BP Pulse Ox 10/13/18 10:20 98.6 F 86 20 147/88 91 10/13/18 10:19 20 147/88 10/13/18 10:00 94 10/13/18 05:26 98.4 F 80 22 153/86 94 10/13/18 05:01 97 10/13/18 04:00 82 10/13/18 00:13 98.9 F 78 14 107/62 94 10/13/18 00:09 98.8 F 86 16 108/57 97 10/12/18 23:57 84 22 98 10/12/18 22:07 68 179/98 10/12/18 22:06 68 179/98 10/12/18 20:56 98.4 F 68 22 179/98 94 10/12/18 20:00 82 10/12/18 16:15 80 201/74 91 10/12/18 11:59 98.7 F 87 18 161/92 89 - Physical Examination General: No Apparent Distress, Other (morbid obesity) HEENT: Positive: PERRL Neck: Positive: trachea midline Cardiac: Positive: Reg Rate and Rhythm Lungs: Positive: Decreased Breath Sounds Neuro: Positive: Grossly Intact Extremities: Absent: edema - Labs and Meds CBC 10/13/18 Range/Units 06:34 WBC 7.8 (4.5-11.0) K/mm3 RBC 5.07 H (3.65-5.03) M/mm3 Hgb 14.5 (11.8-15.2) gm/dl Hct 46.2 H (35.5-45.6) % Plt Count 272 (140-440) K/mm3 Lymph # 2.2 (1.2-5.4) K/mm3 [place] # 0.9 H (0.0-0.8) K/mm3 Eos # 0.3 (0.0-0.4) K/mm3 Baso # 0.1 (0.0-0.1) K/mm3 Comprehensive Metabolic Panel 10/13/18 Range/Units 06:34 Sodium 139 (137-145) mmol/L Potassium 5.1 H (3.6-5.0) mmol/L Chloride 92.9 L (98-107) mmol/L Carbon Dioxide 34 H (22-30) mmol/L BUN 35 H (9-20) mg/dL Creatinine 1.4 (0.8-1.5) mg/dL Glucose 256 H (75-100) mg/dL Calcium 8.9 (8.4-10.2) mg/dL
--- NOTE | 2018-10-13 12:04 | Event Note ---
Date: 10/13/[address] Ulrich
--- NOTE | 2018-10-13 16:06 | Progress Note ---
Assessment and Plan Assessment and plan: 1) Congestive heart failure, history of dilated cardiomyopathy with ejection fraction of 35-40% - Continue IV Lasix and other appropriate CHF medications - Cardiology is following, and said he is stable cardiac-marrero (2) Hyperkalemia - corrected - Potassium this morning was 5.1 (3) Obesity hypoventilation syndrome Supplemental oxygen, nebulizer therapy, early ambulation, NIPPV as clinically indicated, chest x ray. Pulmonary consulted and a pending evaluation Patient needs CPAP (4) Acute and chronic respiratory failure; due to CHF and obesity hypoventilation syndrome Supplemental oxygen, nebulizer therapy. CTA is unremarkable Patient is followed with Dr. Ulrich as an O/P and consult placed Diabetes mellitus with hyperglycemia - Patient is on sliding scale insulin, ADA diet, accu-check - Blood glucose is uncontrolled and it is increased from 10-15 units daily. DVT prophylaxis; SCD to BLE while in bed. lovenox ABG was done this morning and patient needs home oxygen and trilogy machine which will be available tomorrow. History Interval history: Patient was seen and evaluated this morning, patient is morbidly obese, complaining of chest discomfort and shortness of breath. Hospitalist Physical - Physical exam Narrative exam: Not in cardiopulmonary distress. The patient is morbidly obese. Vital signs as documented. Head exam is unremarkable. No scleral icterus . Neck is without jugular venous distension, thyromegaly, or carotid bruits. Lungs are clear to auscultation. Cardiac exam reveals regular rate and Rhythm. llops. Abdominal exam reveals normal bowel sounds, no masses, no organomegaly and no aortic enlargement. Extremities trace bilateral lower extremity edema. 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 No focal weakness. - Constitutional Vitals: Temp Pulse Resp BP Pulse Ox 97.6 F 90 20 156/95 86 10/13/18 13:29 10/13/18 13:28 10/13/18 13:28 10/13/18 13:28 10/13/18 13:28 General appearance: Present: no acute distress, obese Results - Labs CBC & Chem 7: 10/13/18 06:34 10/13/18 06:34 Labs: Laboratory Last Values WBC 7.8 K/mm3 (4.5-11.0) 10/13/18 06:34 RBC 5.07 M/mm3 (3.65-5.03) H 10/13/18 06:34 Hgb 14.5 gm/dl (11.8-15.2) 10/13/18 06:34 Hct 46.2 % (35.5-45.6) H 10/13/18 06:34 MCV 91 fl (84-94) 10/13/18 06:34 MCH 29 pg (28-32) 10/13/18 06:34 MCHC 32 % (32-34) 10/13/18 06:34 RDW 15.6 % (13.2-15.2) H 10/13/18 06:34 Plt Count 272 K/mm3 (140-440) 10/13/18 06:34 Lymph % (Auto) 28.7 % (13.4-35.0) 10/13/18 06:34 [place] % (Auto) 12.0 % (0.0-7.3) H 10/13/18 06:34 Eos % (Auto) 3.5 % (0.0-4.3) 10/13/18 06:34 Baso % (Auto) 1.2 % (0.0-1.8) 10/13/18 06:34 Lymph # 2.2 K/mm3 (1.2-5.4) 10/13/18 06:34 [place] # 0.9 K/mm3 (0.0-0.8) H 10/13/18 06:34 Eos # 0.3 K/mm3 (0.0-0.4) 10/13/18 06:34 Baso # 0.1 K/mm3 (0.0-0.1) 10/13/18 06:34 Seg Neutrophils % 54.6 % (40.0-70.0) 10/13/18 06:34 Seg Neutrophils # 4.3 K/mm3 (1.8-7.7) 10/13/18 06:34 PT 13.6 Sec. (12.2-14.9) 10/08/18 13:07 INR 0.98 (0.87-1.13) 10/08/18 13:07 APTT 27.7 Sec. (24.2-36.6) 10/08/18 13:07 D-Dimer 259.37 ng/mlDDU (0-234) H 10/08/18 13:07 Sodium 139 mmol/L (137-145) 10/13/18 06:34 Potassium 5.1 mmol/L (3.6-5.0) H 10/13/18 06:34 Chloride 92.9 mmol/L (98-107) L 10/13/18 06:34 Carbon Dioxide 34 mmol/L (22-30) H 10/13/18 06:34 Anion Gap 17 mmol/L 10/13/18 06:34 BUN 35 mg/dL (9-20) H 10/13/18 06:34 Creatinine 1.4 mg/dL (0.8-1.5) 10/13/18 06:34 Estimated GFR > 60 ml/min 10/13/18 06:34 BUN/Creatinine Ratio 25 % 10/13/18 06:34 Glucose 256 mg/dL (75-100) H 10/13/18 06:34 POC Glucose 144 (70-105) H 10/10/18 17:06 Calcium 8.9 mg/dL (8.4-10.2) 10/13/18 06:34 Magnesium 1.70 mg/dL (1.7-2.3) 10/08/18 13:07 Total Bilirubin 0.20 mg/dL (0.1-1.2) 10/12/18 06:09 AST 15 units/L (5-40) 10/12/18 06:09 ALT 22 units/L (7-56) 10/12/18 06:09 Alkaline Phosphatase 83 units/L (35-129) 10/12/18 06:09 Troponin T < 0.010 ng/mL (0.00-0.029) 10/08/18 13:07 NT-Pro-B Natriuret Pep 1191 pg/mL (0-450) H 10/08/18 13:07 Total Protein 7.0 g/dL (6.3-8.2) 10/12/18 06:09 Albumin 3.7 g/dL (3.9-5) L 10/12/18 06:09 Albumin/Globulin Ratio 1.1 % 10/12/18 06:09
[2018-10-13] MEDS ORDERED: LANTUS SUB-Q ONE (17:00)
--- NOTE | 2018-10-13 17:51 | Consultation ---
History of Present Illness Consult date: 10/13/18 Reason for consult: dyspnea History of present illness: PULMONARY AND CRITICAL CARE CONSULTATION DR. SAMANO THAN YOU FOR ASKING US TO PARTICIPATE IN THE CARE OF THIS PATIENT. 43 YO Male with MO, DM, Obesity Hypoventilation, Systolic CHF, HTN, Asthma, Nicotine Dependence presents to ED for evaluation. Pt states that he has experienced shortness of breath, and bilateral lower extremity edema over the past 4 days with worsening symptoms over the same time frame. Pt was seen and evaluated by his PCP today and found to have worsening of the aforementioned symptoms. Pt acknowledges Orthopnea/PND, Decreased exercise tolerance, Dypsnea on exertion, Dypsnea at rest, Leg Edema, as well as shortness of breath. Pt instructed to seek care at [facility]. Pt transported to [facility]. Pt seen and evaluated in ED and found to have Acute Respiratory Failure as well as symptoms consistent with CHF Decompensation. Pt admitted to telemetry. Patient sleepy and snoring at this time. Recommend to place him on BIPAP 20/8, rate 20, FIO2 28% ABGs in AM. Patient has Angio CT of chest. Reported no Pulmonary emboli. Unable to get any history at this time. Past History Past Medical History: diabetes, heart failure, hypertension, other (Asthma, YVETTE, obesity) Past Surgical History: No surgical history, Other (reviewed) Social history: . denies: smoking, alcohol abuse, prescription drug abuse Family history: CAD, diabetes, hypertension Medications and Allergies Allergies Allergy/AdvReac Type Severity Reaction Status Date / Time No Known Allergies Allergy Verified 10/08/18 12:33 Home Medications Medication Instructions Recorded Confirmed Last Taken Type Aspirin EC [Aspirin Enteric Coated 81 mg PO QDAY #30 tablet 07/22/18 10/08/18 Unknown Rx TAB] AtorvaSTATin [Lipitor] 40 mg PO QHS #30 tablet 07/22/18 10/08/18 Unknown Rx Carvedilol [Coreg] 12.5 mg PO BID #60 tablet 07/22/18 10/08/18 Unknown Rx Furosemide [Lasix TAB] 60 mg PO QDAY #30 tablet 07/22/18 10/08/18 Unknown Rx Lantus 10 units SQ DAILY 30 Days 07/22/18 10/08/18 Unknown Rx Lisinopril [Zestril TAB] 20 mg PO QDAY #30 tablet 07/22/18 10/08/18 Unknown Rx Meloxicam 15 mg PO DAILY #5 tablet 07/22/18 10/08/18 Unknown Rx Metformin HCl [Glucophage] 1,000 mg PO BID #60 tablet 07/22/18 10/08/18 Unknown Rx Potassium Chloride [K-Dur] 20 meq PO QDAY #30 tablet 07/22/18 10/08/18 Unknown Rx Pregabalin [Lyrica] 200 mg PO BID #60 capsule 07/22/18 10/08/18 Unknown Rx Ranitidine HCl [Heartburn Relief] 150 mg PO BID #60 tablet 07/22/18 10/08/18 Unknown Rx hydroCHLOROthiazide [HCTZ] 25 mg PO QDAY #30 tablet 07/22/18 10/08/18 Unknown Rx Active Meds: Active Medications Acetaminophen (Tylenol) 650 mg PO Q4H PRN PRN Reason: Pain MILD(1-3)/Fever >100.5/PEPPER Last Admin: 10/10/18 13:48 Dose: 650 mg Documented by: Acetaminophen/Hydrocodone Bitart ([place] 7.5/325) 1 each PO BID PRN PRN Reason: Pain, Moderate (4-6) Last Admin: 10/12/18 22:08 Dose: 1 each Documented by: Albuterol (Proventil) 2.5 mg IH Q4HRT PRN PRN Reason: Shortness Of Breath Aspirin (Halfprin Ec) 81 mg PO QDAY [facility] Last Admin: 10/13/18 09:20 Dose: 81 mg Documented by: Atorvastatin Calcium (Lipitor) 40 mg PO QHS [facility] Last Admin: 10/12/18 22:05 Dose: 40 mg Documented by: Carvedilol (Coreg) 12.5 mg PO BID [facility] Last Admin: 10/13/18 09:38 Dose: 12.5 mg Documented by: Dextrose (D50w (25gm) Syringe) 50 ml IV PRN PRN PRN Reason: Hypoglycemia Enoxaparin Sodium (Lovenox) 40 mg SUB-Q QDAY@2200 [facility] Last Admin: 10/12/18 22:06 Dose: 40 mg Documented by: Famotidine (Pepcid) 20 mg PO BID [facility] Last Admin: 10/13/18 09:20 Dose: 20 mg Documented by: Furosemide (Lasix) 40 mg IV 0600,1800 [facility] Last Admin: 10/13/18 05:23 Dose: 40 mg Documented by: Hydralazine HCl (Apresoline) 20 mg IV Q6HR PRN PRN Reason: Hypertension Last Admin: 10/12/18 22:07 Dose: 20 mg Documented by: Hydrochlorothiazide (Hctz) 25 mg PO QDAY [facility] Last Admin: 10/13/18 09:20 Dose: 25 mg Documented by: Insulin Glargine (Lantus) 15 units SUB-Q QDAY [facility] Insulin Human Lispro (Humalog) 0 unit SUB-Q ACHS [facility]; Protocol Last Admin: 10/13/18 12:27 Dose: 4 unit Documented by: Lisinopril (Zestril) 20 mg PO QDAY [facility] Last Admin: 10/13/18 09:20 Dose: 20 mg Documented by: Meloxicam (Mobic) 15 mg PO QDAY [facility] Last Admin: 10/13/18 09:20 Dose: 15 mg Documented by: Ondansetron HCl (Zofran) 4 mg IV Q8H PRN PRN Reason: Nausea And Vomiting Pregabalin (Lyrica) 150 mg PO BID [facility] Last Admin: 10/13/18 09:20 Dose: 150 mg Documented by: Pregabalin (Lyrica) 50 mg PO BID [facility] Last Admin: 10/13/18 09:38 Dose: 50 mg Documented by: Sodium Chloride (Sodium Chloride Flush Syringe 10 Ml) 10 ml IV BID [facility] Last Admin: 10/13/18 09:22 Dose: 10 ml Documented by: Sodium Chloride (Sodium Chloride Flush Syringe 10 Ml) 10 ml IV PRN PRN PRN Reason: LINE FLUSH Last Admin: 10/10/18 05:55 Dose: 10 ml Documented by: Review of Systems All systems: negative Physical Examination Vital signs: Vital Signs Pulse Resp BP Pulse Ox 90 26 H 185/89 96 10/08/18 12:34 10/08/18 12:34 10/08/18 12:34 10/08/18 12:34 General appearance: asleep, other (sleeping, snoring. Not responding to verbal stimuli.) Eyes: non-icteric ENT: oropharynx moist Neck: supple, no JVD Effort: mildly labored Ascultation: Bilateral: diminished breath sounds Cardiovascular: regular rate and rhythm Gastrointestinal: normoactive bowel sounds, soft, non-tender, other (Morbidley Obese.) Integumentary: other (Stasis dermatitis.) Extremities: no cyanosis, edema Musculoskeletal: other (Patient Morbidley Obese.) Gait: poor gait other (Patient in deep sleep and snoring.) other (Patient is in deep sleep.) Results - Laboratory Findings CBC and BMP: 10/13/18 06:34 10/13/18 06:34 PT/INR, D-dimer PT 13.6 Sec. (12.2-14.9) 10/08/18 13:07 INR 0.98 (0.87-1.13) 10/08/18 13:07 D-Dimer 259.37 ng/mlDDU (0-234) H 10/08/18 13:07 Abnormal lab findings: Abnormal Labs 10/08/18 10/08/18 10/08/18 13:07 13:07 13:07 RBC Hct MCHC RDW 15.7 H [place] % (Auto) 7.4 H [place] # D-Dimer 259.37 H Potassium 5.5 H Chlor[place] 95.7 L Carbon Dioxide 31 H BUN Glucose 140 H POC Glucose NT-Pro-B Natriuret Pep Albumin 3.6 L 10/08/18 10/08/18 10/09/18 13:07 20:20 07:33 RBC Hct MCHC RDW [place] % (Auto) [place] # D-Dimer Potassium Chloride Carbon Dioxide BUN Glucose POC Glucose 177 H 153 H NT-Pro-B Natriuret Pep 1191 H Albumin 10/09/18 10/09/18 10/09/18 12:26 17:08 19:59 RBC Hct MCHC RDW [place] % (Auto) [place] # D-Dimer Potassium Chloride 95.7 L Carbon Dioxide BUN 27 H Glucose 184 H POC Glucose 151 H 134 H NT-Pro-B Natriuret Pep Albumin 10/09/18 10/10/18 10/10/18 21:38 07:20 11:59 RBC Hct MCHC RDW [place] % (Auto) [place] # D-Dimer Potassium Chloride Carbon Dioxide BUN Glucose POC Glucose 162 H 152 H 150 H NT-Pro-B Natriuret Pep Albumin 10/10/18 10/12/18 10/12/18 17:06 06:09 06:09 RBC 5.14 H Hct 46.6 H MCHC 31 L RDW 15.5 H [place] % (Auto) 12.5 H [place] # 0.9 H D-Dimer Potassium 5.6 H [place] 96.6 L Carbon Dioxide 34 H BUN 32 H Glucose 247 H POC Glucose 144 H NT-Pro-B Natriuret Pep Albumin 3.7 L 10/13/18 10/13/18 06:34 06:34 RBC 5.07 H Hct 46.2 H MCHC RDW 15.6 H [place] % (Auto) 12.0 H [place] # 0.9 H D-Dimer Potassium 5.1 H [place] 92.9 L Carbon Dioxide 34 H BUN 35 H Glucose 256 H POC Glucose NT-Pro-B Natriuret Pep Albumin - Diagnostic Findings Chest x-ray: report reviewed (Borderline heart size. No CHF.), image reviewed CT scan - chest: report reviewed (Patient has Angio CT of chest. No pulmonary emboli reported.), image reviewed Assessment and Plan 43 YO Male with MO, DM, Obesity Hypoventilation, Systolic CHF, HTN, Asthma, Nicotine Dependence presents to ED for evaluation. Pt states that he has experienced shortness of breath, and bilateral lower extremity edema over the past 4 days with worsening symptoms over the same time frame. Pt was seen and evaluated by his PCP today and found to have worsening of the aforementioned symptoms. Pt acknowledges Orthopnea/PND, Decreased exercise tolerance, Dypsnea on exertion, Dypsnea at rest, Leg Edema, as well as shortness of breath. Pt instructed to seek care at [facility]. Pt transported to [facility]. Pt seen and evaluated in ED and found to have Acute Respiratory Failure as well as symptoms consistent with CHF Decompensation. Pt admitted to telemetry. Patient sleepy and snoring at this time. Recommend to place him on BIPAP 20/8, rate 20, FIO2 28% ABGs in AM. Patient has Angio CT of chest. Reported no Pulmonary emboli. Unable to get any history at this time. I spent critical care time of 50 minutes on this patient for reviewing chart, examine the patient, review labs, review CT of chest, chest xray, review blood work, talking to the nursing staff and respiratory therapy and work out plan of treatment. - Patient Problems (1) Congestive heart failure Current Visit: Yes Status: Acute Qualifiers: Heart failure type: diastolic Heart failure chronicity: acute Qualified Code(s): I50.31 - Acute diastolic (congestive) heart failure Plan to address problem: Management as per primary care and cardiology. (2) Bronchospasm Current Visit: Yes Status: Acute Plan to address problem: Albuterol/atrovent aerosol treatments q 6 hours. (3) Morbid obesity Current Visit: Yes Status: Acute (4) Obesity hypoventilation syndrome Current Visit: Yes Status: Acute Plan to address problem: BIPAP 20/8, rate 20, FIO2 28%. (5) Acute and chronic respiratory failure Current Visit: No Status: Acute Qualifiers: Respiratory failure complication: hypercapnia Qualified Code(s): J96.22 - Acute and chronic respiratory failure with hypercapnia Plan to address problem: BIPAP 20/8, rate 20, FIO2 28%. Albuterol/atrovent aerosol treatments q 6 hours. Continue S/C Lovenox. Continue Famotidine. (6) Accelerated hypertension Current Visit: No Status: Acute Plan to address problem: Management as per primary care. (7) Nicotine dependence unspecified, with withdrawal Current Visit: No Status: Acute Qualifiers: Nicotine product type: cigarettes Qualified Code(s): F17.213 - Nicotine dependence, cigarettes, with withdrawal Plan to address problem: Will educate him to stop smoking when he is more alert.
[2018-10-13] MEDS: APRESOLINE IV PRN (22:18)
[2018-10-13] MEDS: LOVENOX SUB-Q SCH (22:19)
[2018-10-14] MEDS: PROVENTIL IH SCH ×3 (01:09→14:48)
[2018-10-14] MEDS: ATROVENT IH SCH ×3 (01:09→14:48)
[2018-10-14] MEDS: LASIX IV SCH ×2 (06:44→16:51)
[2018-10-14] MEDS: HumaLOG SUB-Q SCH ×2 (08:40→17:03)
[2018-10-14] MEDS: NORCO 7.5/325 PO PRN (08:52)
[2018-10-14] MEDS: MOBIC PO SCH (09:06)
[2018-10-14] MEDS: LYRICA PO SCH ×2 (09:07→09:12)
[2018-10-14] MEDS: HALFPRIN EC PO SCH (09:07)
[2018-10-14] MEDS: HCTZ PO SCH (09:07)
[2018-10-14] MEDS: ZESTRIL PO SCH (09:08)
[2018-10-14] MEDS: COREG PO SCH (09:11)
[2018-10-14] MEDS: PEPCID PO SCH (09:13)
[2018-10-14] MEDS: SODIUM CHLORIDE FLUSH SYRINGE 10 ML IV SCH (09:13)
--- NOTE | 2018-10-14 09:44 | Progress Note ---
Assessment and Plan Acute hypoxemic respiratory failure YVETTE with OHS Congestive heart failure, EF 35-40% Diabetes mellitus with hyperglycemia -Continue with supplemental oxygen to keep O2 sat 88-90% -Nocturnal NIV and during the day while asleep -VTE prophylaxis -Life style modification and weight loss counselling -Cardio-protective measures -Chronic home medications -Glycemic control, keep blood glucose between 140-180 mg/dL -Increase activity -Discharge planning will need outpatient sleep study Subjective Date of service: 10/14/18 Principal diagnosis: CHF exacerbation acute on chronic respiratory failure Interval history: Seen and examined. Vitals, labs, medications, chart reviewed. No acute overnight events. Denies any chest pain, no shortness of breath, no fevers or chills. Tolerating NIPPV. No nausea or vomiting. Currently on supplemental oxygen Objective Vital Signs - 12hr 10/13/18 10/13/18 10/14/18 22:14 22:18 00:51 Temperature 98.1 F Pulse Rate 95 H 95 H 103 H Pulse Rate [ Anterior Bilateral Throughout] Pulse Rate [ Apical] Pulse Rate [ Posterior Bilateral Throughout] Respiratory 22 Rate Respiratory Rate [Anterior Bilateral Throughout] Respiratory Rate [Posterior Bilateral Throughout] Blood Pressure 181/95 181/95 155/64 O2 Sat by Pulse 95 Oximetry 10/14/18 10/14/18 10/14/18 01:09 01:19 04:28 Temperature 98.3 F Pulse Rate 91 H Pulse Rate [ Anterior Bilateral Throughout] Pulse Rate [ Apical] Pulse Rate [ 99 H 96 H Posterior Bilateral Throughout] Respiratory 22 Rate Respiratory Rate [Anterior Bilateral Throughout] Respiratory 20 20 Rate [Posterior Bilateral Throughout] Blood Pressure 132/71 O2 Sat by Pulse 94 Oximetry 10/14/18 10/14/18 10/14/18 04:46 08:00 08:11 Temperature Pulse Rate 89 Pulse Rate [ 82 88 Anterior Bilateral Throughout] Pulse Rate [ Apical] Pulse Rate [ Posterior Bilateral Throughout] Respiratory 21 Rate Respiratory 20 16 Rate [Anterior Bilateral Throughout] Respiratory Rate [Posterior Bilateral Throughout] Blood Pressure O2 Sat by Pulse 96 Oximetry 10/14/18 10/14/18 10/14/18 08:31 08:48 08:54 Temperature Pulse Rate 83 Pulse Rate [ Anterior Bilateral Throughout] Pulse Rate [ 83 Apical] Pulse Rate [ Posterior Bilateral Throughout] Respiratory Rate Respiratory Rate [Anterior Bilateral Throughout] Respiratory Rate [Posterior Bilateral Throughout] Blood Pressure O2 Sat by Pulse 94 Oximetry 10/14/18 10/14/18 09:08 09:11 Temperature Pulse Rate 88 88 Pulse Rate [ Anterior Bilateral Throughout] Pulse Rate [ Apical] Pulse Rate [ Posterior Bilateral Throughout] Respiratory Rate Respiratory Rate [Anterior Bilateral Throughout] Respiratory Rate [Posterior Bilateral Throughout] Blood Pressure 138/94 138/94 O2 Sat by Pulse Oximetry Constitutional: no acute distress, alert, other (extreme obesity) Eyes: non-icteric ENT: oropharynx moist Neck: supple, no JVD, other (Short neck) Effort: mildly labored Ascultation: Bilateral: diminished breath sounds Cardiovascular: regular rate and rhythm, other (S1,S2, no mururs) Gastrointestinal: normoactive bowel sounds, soft, non-tender, other (Morbidley Obese.) Integumentary: other (Stasis dermatitis.) Extremities: no cyanosis, no ischemia or petechiae, edema Neurologic: normal mental status, non-focal exam, pupils equal and round, CN II- XII normal, motor strength normal and Psychiatric: mood appropriate, affect normal CBC and BMP: 10/13/18 06:34 10/13/18 06:34 ABG, PT/INR, D-dimer: ABG POC ABG pH 7.294 (7.35-7.45) L 10/13/18 14:14 POC ABG pO2 62 (80-105) L 10/13/18 14:14 POC ABG HCO3 36.7 (22-26 mml/L) 10/13/18 14:14 POC ABG Total CO2 39 (23-27mmol/L) 10/13/18 14:14 POC ABG O2 Sat 87 10/13/18 14:14 PT/INR, D-dimer PT 13.6 Sec. (12.2-14.9) 10/08/18 13:07 INR 0.98 (0.87-1.13) 10/08/18 13:07 D-Dimer 259.37 ng/mlDDU (0-234) H 10/08/18 13:07 Abnormal lab findings: Abnormal Labs 10/08/18 10/08/18 10/08/18 13:07 13:07 13:07 RBC Hct MCHC RDW 15.7 H [place] % (Auto) 7.4 H [place] # D-Dimer 259.37 H POC ABG pH POC ABG pO2 Potassium 5.5 H Chloride 95.7 L Carbon Dioxide 31 H BUN Glucose 140 H POC Glucose NT-Pro-B Natriuret Pep Albumin 3.6 L 10/08/18 10/08/18 10/09/18 13:07 20:20 07:33 RBC Hct MCHC RDW [place] % (Auto) [place] # D-Dimer POC ABG pH POC ABG pO2 Potassium Chloride Carbon Dioxide BUN Glucose POC Glucose 177 H 153 H NT-Pro-B Natriuret Pep 1191 H Albumin 10/09/18 10/09/18 10/09/18 12:26 17:08 19:59 RBC Hct MCHC RDW [place] % (Auto) [place] # D-Dimer POC ABG pH POC ABG pO2 Potassium Chloride 95.7 L Carbon Dioxide BUN 27 H Glucose 184 H POC Glucose 151 H 134 H NT-Pro-B Natriuret Pep Albumin 10/09/18 10/10/18 10/10/18 21:38 07:20 11:59 RBC Hct MCHC RDW [place] % (Auto) [place] # D-Dimer POC ABG pH POC ABG pO2 Potassium Chloride Carbon Dioxide BUN Glucose POC Glucose 162 H 152 H 150 H NT-Pro-B Natriuret Pep Albumin 10/10/18 10/10/18 10/11/18 17:06 21:44 08:57 RBC Hct MCHC RDW [place] % (Auto) [place] # D-Dimer POC ABG pH POC ABG pO2 Potassium Chloride Carbon Dioxide BUN Glucose POC Glucose 144 H 188 H 159 H NT-Pro-B Natriuret Pep Albumin 10/11/18 10/11/18 10/11/18 13:05 16:18 21:27 RBC Hct MCHC RDW [place] % (Auto) [place] # D-Dimer POC ABG pH POC ABG pO2 Potassium Chloride Carbon Dioxide BUN Glucose POC Glucose 186 H 229 H 243 H NT-Pro-B Natriuret Pep Albumin 10/11/18 10/12/18 10/12/18 23:40 06:09 06:09 RBC 5.14 H Hct 46.6 H MCHC 31 L RDW 15.5 H [place] % (Auto) 12.5 H [place] # 0.9 H D-Dimer POC ABG pH POC ABG pO2 Potassium 5.6 H Chloride 96.6 L Carbon Dioxide 34 H BUN 32 H Glucose 247 H POC Glucose 205 H NT-Pro-B Natriuret Pep Albumin 3.7 L 10/12/18 10/12/18 10/12/18 08:26 12:03 16:19 RBC Hct MCHC RDW [place] % (Auto) [place] # D-Dimer POC ABG pH POC ABG pO2 Potassium Chloride Carbon Dioxide BUN Glucose POC Glucose 209 H 218 H 229 H NT-Pro-B Natriuret Pep Albumin 10/12/18 10/13/18 10/13/18 21:18 06:34 06:34 RBC 5.07 H Hct 46.2 H MCHC RDW 15.6 H [place] % (Auto) 12.0 H [place] # 0.9 H D-Dimer POC ABG pH POC ABG pO2 Potassium 5.1 H Chloride 92.9 L Carbon Dioxide 34 H BUN 35 H Glucose 256 H POC Glucose 182 H NT-Pro-B Natriuret Pep Albumin 10/13/18 10/13/18 10/13/18 08:12 12:19 14:14 RBC Hct MCHC RDW [place] % (Auto) [place] # D-Dimer POC ABG pH 7.294 L POC ABG pO2 62 L Potassium Chloride Carbon Dioxide BUN Glucose POC Glucose 254 H 214 H NT-Pro-B Natriuret Pep Albumin 10/13/18 10/13/18 10/14/18 17:03 22:29 07:27 RBC Hct MCHC RDW [place] % (Auto) [place] # D-Dimer POC ABG pH POC ABG pO2 Potassium Chloride Carbon Dioxide BUN Glucose POC Glucose 182 H 260 H 207 H NT-Pro-B Natriuret Pep Albumin Allied health notes reviewed: nursing
[2018-10-14] MEDS ORDERED: LANTUS SUB-Q SCH (10:00)
--- NOTE | 2018-10-14 15:35 | Progress Note ---
Assessment and Plan Assessment and plan: 1) Congestive heart failure, history of dilated cardiomyopathy with ejection fraction of 35-40% - Continue IV Lasix and other appropriate CHF medications - Cardiology is following, and said he is stable cardiac-marrero (2) Hyperkalemia - corrected - Potassium this morning was 5.1 (3) Obesity hypoventilation syndrome Supplemental oxygen, nebulizer therapy, early ambulation, NIPPV as clinically indicated, chest x ray. Pulmonary consulted and a pending evaluation Patient needs CPAP (4) Acute and chronic respiratory failure; due to CHF and obesity hypoventilation syndrome Supplemental oxygen, nebulizer therapy. CTA is unremarkable Patient is followed with Dr. Ulrich as an O/P and consult placed Diabetes mellitus with hyperglycemia - Patient is on sliding scale insulin, ADA diet, accu-check - Blood glucose is uncontrolled and it is increased from 10-15 units daily. DVT prophylaxis; SCD to BLE while in bed. lovenox Patient will be discharged once home oxygen and trilogy machine arranged. History Interval history: Patient was seen and evaluated this morning, patient is morbidly obese, no new complaints. Hospitalist Physical - Physical exam Narrative exam: Not in cardiopulmonary distress. The patient is morbidly obese. Vital signs as documented. Head exam is unremarkable. No scleral icterus . Neck is without jugular venous distension, thyromegaly, or carotid bruits. Lungs are clear to auscultation. Cardiac exam reveals regular rate and Rhythm. llops. Abdominal exam reveals normal bowel sounds. Extremities trace bilateral lower extremity edema. 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 No focal weakness. - Constitutional Vitals: Temp Pulse Resp BP Pulse Ox 98.3 F 85 20 138/94 94 10/14/18 04:28 10/14/18 14:51 10/14/18 14:51 10/14/18 09:11 10/14/18 08:31 General appearance: Present: no acute distress, obese Results - Labs CBC & Chem 7: 10/13/18 06:34 10/13/18 06:34 Labs: Laboratory Last Values WBC 7.8 K/mm3 (4.5-11.0) 10/13/18 06:34 RBC 5.07 M/mm3 (3.65-5.03) H 10/13/18 06:34 Hgb 14.5 gm/dl (11.8-15.2) 10/13/18 06:34 Hct 46.2 % (35.5-45.6) H 10/13/18 06:34 MCV 91 fl (84-94) 10/13/18 06:34 MCH 29 pg (28-32) 10/13/18 06:34 MCHC 32 % (32-34) 10/13/18 06:34 RDW 15.6 % (13.2-15.2) H 10/13/18 06:34 Plt Count 272 K/mm3 (140-440) 10/13/18 06:34 Lymph % (Auto) 28.7 % (13.4-35.0) 10/13/18 06:34 [place] % (Auto) 12.0 % (0.0-7.3) H 10/13/18 06:34 Eos % (Auto) 3.5 % (0.0-4.3) 10/13/18 06:34 Baso % (Auto) 1.2 % (0.0-1.8) 10/13/18 06:34 Lymph # 2.2 K/mm3 (1.2-5.4) 10/13/18 06:34 [place] # 0.9 K/mm3 (0.0-0.8) H 10/13/18 06:34 Eos # 0.3 K/mm3 (0.0-0.4) 10/13/18 06:34 Baso # 0.1 K/mm3 (0.0-0.1) 10/13/18 06:34 Seg Neutrophils % 54.6 % (40.0-70.0) 10/13/18 06:34 Seg Neutrophils # 4.3 K/mm3 (1.8-7.7) 10/13/18 06:34 PT 13.6 Sec. (12.2-14.9) 10/08/18 13:07 INR 0.98 (0.87-1.13) 10/08/18 13:07 APTT 27.7 Sec. (24.2-36.6) 10/08/18 13:07 D-Dimer 259.37 ng/mlDDU (0-234) H 10/08/18 13:07 POC ABG pH 7.358 (7.35-7.45) 10/14/18 08:06 POC ABG pO2 60 (80-105) L 10/14/18 08:06 POC ABG HCO3 39.5 (22-26 mml/L) 10/14/18 08:06 POC ABG Total CO2 42 (23-27mmol/L) 10/14/18 08:06 POC ABG O2 Sat 88 10/14/18 08:06 POC ABG Base Excess 14 ((-2) - (+3)mmol/L) 10/14/18 08:06 FiO2 32 % 10/14/18 08:06 Sodium 139 mmol/L (137-145) 10/13/18 06:34 Potassium 5.1 mmol/L (3.6-5.0) H 10/13/18 06:34 Chloride 92.9 mmol/L (98-107) L 10/13/18 06:34 Carbon Dioxide 34 mmol/L (22-30) H 10/13/18 06:34 Anion Gap 17 mmol/L 10/13/18 06:34 BUN 35 mg/dL (9-20) H 10/13/18 06:34 Creatinine 1.4 mg/dL (0.8-1.5) 10/13/18 06:34 Estimated GFR > 60 ml/min 10/13/18 06:34 BUN/Creatinine Ratio 25 % 10/13/18 06:34 Glucose 256 mg/dL (75-100) H 10/13/18 06:34 POC Glucose 203 (70-105) H 10/14/18 12:30 Calcium 8.9 mg/dL (8.4-10.2) 10/13/18 06:34 Magnesium 1.70 mg/dL (1.7-2.3) 10/08/18 13:07 Total Bilirubin 0.20 mg/dL (0.1-1.2) 10/12/18 06:09 AST 15 units/L (5-40) 10/12/18 06:09 ALT 22 units/L (7-56) 10/12/18 06:09 Alkaline Phosphatase 83 units/L (35-129) 10/12/18 06:09 Troponin T < 0.010 ng/mL (0.00-0.029) 10/08/18 13:07 NT-Pro-B Natriuret Pep 1191 pg/mL (0-450) H 10/08/18 13:07 Total Protein 7.0 g/dL (6.3-8.2) 10/12/18 06:09 Albumin 3.7 g/dL (3.9-5) L 10/12/18 06:09 Albumin/Globulin Ratio 1.1 % 10/12/18 06:09
[2018-10-14 15:42] VITALS: BP 150/68
--- NOTE | 2018-10-14 16:05 | Discharge Summary ---
Providers - Providers Date of Admission: 10/08/18 16:15 Attending physician: JEROME HARTMAN MD 10/13/18 15:34 Consult to Physician [CONS] Routine Comment: Consulting Provider: EPHRAIM HENSLEY Physician Instructions: Reason For Exam: YVETTE, respiratory failure 10/14/18 10:30 Consult to Case Management [CONS] Routine Services Needed at Discharge: Other Notified:: Case Management Phone number called:: [phone] Was contact made?: Yes If yes, spoke with:: Ada Additional Physician Instructions: Home Trilogy/NIV Acute on Chronic Respiratory Failure with Hypercapnia secondary to Obesity Hyperventilation Syndrome. Mr. Jade has been admitted to the hospital because of shortness of breath. Despite oxygen therapy, he continues to experience daytime fatigue, breath stacking and CO2 retention. The patients disease impedes adequate ventilation. Recommending NIV to help improve quality of life and prevent future hospital admissions. [facility] Reason for admission: Acute on chronic respiratory failure, YVETTE, CHF exacebation Condition: Stable Pertinent studies: CTA, CXR unremarkable Hospital course: 43 YO Male with MO, DM, Obesity Hypoventilation, Systolic CHF, HTN, Asthma, Nicotine Dependence presents to ED for evaluation. Pt states that he has experienced shortness of breath, and bilateral lower extremity edema over the past 4 days with worsening symptoms over the same time frame. Pt was seen and evaluated by his PCP and found to have worsening of the aforementioned symptoms. Pt acknowledged Orthopnea/PND, Decreased exercise tolerance, Dypsnea on exertion, Dypsnea at rest, Leg Edema, as well as shortness of breath. Pt instructed to seek care at [facility]. Pt transported to [facility]. Pt seen and evaluated in ED and found to have Acute Respiratory Failure as well as symptoms consistent with CHF Decompensation. Pt admitted to telemetry. Cardiology consulted in ED. Patient was admitted to the floor, treated appropriately for CHF exacerbation, cardiology consult appreciated. patient has Obesity associated hyperventilation syndrome and patient's pulmonary group was consulted and recommend O/P f/u and sleep study. patient was qualified for oxygen and triology machine and discharged with arrangement. patient was extensively managed about medication adherence and weight loss. Patient was hemodynamically stable at the time of discharge. Disposition: TO HOME OR SELFCARE Time spent for discharge: 32 minutes - Discharge Diagnoses (1) Congestive heart failure Status: Chronic Qualifiers: Heart failure type: systolic Heart failure chronicity: acute on chronic Qualified Code(s): I50.23 - Acute on chronic systolic (congestive) heart failure (2) Hypertensive urgency Status: Acute (3) Morbid obesity Status: Chronic (4) Obesity hypoventilation syndrome Status: Chronic (5) Acute and chronic respiratory failure Status: Acute Qualifiers: Respiratory failure complication: hypoxia and hypercapnia Qualified Code(s): J96.21 - Acute and chronic respiratory failure with hypoxia; J96.22 - Acute and chronic respiratory failure with hypercapnia Core Measure Documentation - Palliative Care Palliative Care/ Comfort Measures: Not Applicable - Core Measures Any of the following diagnoses?: none Exam - Physical Exam Narrative exam: Not in cardiopulmonary distress. The patient is morbidly obese. Vital signs as documented. Head exam is unremarkable. No scleral icterus . Neck is without jugular venous distension, thyromegaly, or carotid bruits. Lungs are clear to auscultation. Cardiac exam reveals regular rate and Rhythm. Abdominal exam reveals normal bowel sounds. Extremities trace bilateral lower extremity edema. [employer]: Alert and oriented 3. No focal weakness. - Constitutional Vitals: Temp Pulse Resp BP Pulse Ox 97.8 F 51 L 18 150/68 100 10/14/18 15:07 10/14/18 15:34 10/14/18 15:07 10/14/18 15:07 10/14/18 15:34 Plan Activity: no restrictions Weight Bearing Status: Full Weight Bearing Diet: low fat, low salt, low carbohydrate Special Instructions: home oxygen via Follow up with: ELIANA HENSON MD [Primary Care Provider] - 3-5 Days Prescriptions: Nebulizer [Aeroneb Go Nebulizer] 1 each MC Q4H #1 each ALBUTEROL NEB's [Proventil 0.083% NEBS] 2.5 mg IH Q6HRT #60 nebu
== END 2018-10-14 17:00 | disposition home or self-care (01) | DRG 291 ==
LOC: ED 11:45 → 4A 16:15
PROVIDERS: ADMIT Internal Medicine; ATTEND Internal Medicine
PROC: 5A09357 Assistance with Respiratory Ventilation, Less than 24 Consecutive Hours, Continuous Positive Airway Pressure (ICD-10-PCS; 2018-10-09)
PROC: 5A09357 Assistance with Respiratory Ventilation, Less than 24 Consecutive Hours, Continuous Positive Airway Pressure (ICD-10-PCS; 2018-10-11)
PROC: 5A09357 Assistance with Respiratory Ventilation, Less than 24 Consecutive Hours, Continuous Positive Airway Pressure (ICD-10-PCS; 2018-10-12)
PROC: 4A033R1 Measurement of Arterial Saturation, Peripheral, Percutaneous Approach (ICD-10-PCS; principal; 2018-10-13)
PROC: 5A09357 Assistance with Respiratory Ventilation, Less than 24 Consecutive Hours, Continuous Positive Airway Pressure (ICD-10-PCS; 2018-10-13)
PROC: 5A09357 Assistance with Respiratory Ventilation, Less than 24 Consecutive Hours, Continuous Positive Airway Pressure (ICD-10-PCS; 2018-10-14)
DX: I11.0 Hypertensive heart disease with heart failure (principal); J96.22 Acute and chronic respiratory failure with hypercapnia; J96.21 Acute and chronic respiratory failure with hypoxia; J45.909 Unspecified asthma, uncomplicated; E78.5 Hyperlipidemia, unspecified; I16.0 Hypertensive urgency; E66.2 Morbid (severe) obesity with alveolar hypoventilation; E87.5 Hyperkalemia; I42.0 Dilated cardiomyopathy; E11.65 Type 2 diabetes mellitus with hyperglycemia; F17.213 Nicotine dependence, cigarettes, with withdrawal; I50.43 Acute on chronic combined systolic (congestive) and diastolic (congestive) heart failure; Z68.43 Body mass index [BMI] 50.0-59.9, adult; Z79.4 Long term (current) use of insulin
CPT/HCPCS: 36415; 36600; 71045; 71275; 80048; 80053; 82803; 82962; 83735; 83880; 84484; 85025; 85379; 85610; 85730; 87116; 93005; 93010; 94640; 94660; 94760; 96374; 96375; 96376; 99406; G0378; A9270-GY; J0360; J1650; J1815; J1940; J2930; J3246; Q9967

== ENCOUNTER 2019-04-08 06:19 | Emergency (ER) | payer MEDICAID ==
[2019-04-08] MEDS ORDERED: ADRENALIN ONE (06:20)
[2019-04-08] MEDS ORDERED: CALCIUM CHLORIDE IV ONE (06:20)
--- NOTE | 2019-04-08 06:40 | Emergency Department Report ---
HPI - General Time Seen by Provider: 04/08/19 06:34 - HPI HPI: 43 yo AA M presents to the ED via EMS from home in cardiac arrest. Unknown down time. The patient was found by either his mother or , per EMS, face down next to his bed. Per his medical records here, I have seen the patient before in October of this year. He has a pmhx of HTN, DM, YVETTE, CHF, and morbid obesity. EMS found the patient face down and apneic. He was intubated and ACLS protocol was started. They were preforming ACLS without any ROSC, for at least thirty minutes, prior to arrival in the ED. He arrives intubated, having recieved four rounds of Epi, and has remained in Asystole the entire time. ED Past Medical Hx - Past Medical History Hx Hypertension: Yes Hx Congestive Heart Failure: Yes Hx Diabetes: Yes Hx Asthma: Yes Hx COPD: No Hx HIV: No Additional medical history: reflux conjunctivitis 2 years ago., obesity, sleep apnea - Social History Smoking Status: Former Smoker - Medications Home Medications: Home Medications Medication Instructions Recorded Confirmed Last Taken Type Aspirin EC [Halfprin EC] 81 mg PO QDAY #30 tablet 07/22/18 10/08/18 Unknown Rx AtorvaSTATin [Lipitor] 40 mg PO QHS #30 tablet 07/22/18 10/08/18 Unknown Rx Carvedilol [Coreg] 12.5 mg PO BID #60 tablet 07/22/18 10/08/18 Unknown Rx Furosemide [Lasix TAB] 60 mg PO QDAY #30 tablet 07/22/18 10/08/18 Unknown Rx Lantus 10 units SQ DAILY 30 Days 07/22/18 10/08/18 Unknown Rx Lisinopril [Zestril TAB] 20 mg PO QDAY #30 tablet 07/22/18 10/08/18 Unknown Rx Meloxicam 15 mg PO DAILY #5 tablet 07/22/18 10/08/18 Unknown Rx Metformin HCl [Glucophage] 1,000 mg PO BID #60 tablet 07/22/18 10/08/18 Unknown Rx Potassium Chloride [K-Dur] 20 meq PO QDAY #30 tablet 07/22/18 10/08/18 Unknown Rx Pregabalin [Lyrica] 200 mg PO BID #60 capsule 07/22/18 10/08/18 Unknown Rx Ranitidine HCl [Heartburn Relief] 150 mg PO BID #60 tablet 07/22/18 10/08/18 Unknown Rx hydroCHLOROthiazide [HCTZ] 25 mg PO QDAY #30 tablet 07/22/18 10/08/18 Unknown Rx ALBUTEROL NEB's [Proventil 0.083% 2.5 mg IH Q6HRT #60 nebu 10/14/18 Unknown Rx NEBS] Nebulizer [Aeroneb Go Nebulizer] 1 each MC Q4H #1 each 10/14/18 Unknown Rx ED Review of Systems ROS: Stated complaint: CARDIAC ARREST Other details as noted in HPI Comment: Unobtainable due to pts medical conditions Physical Exam - Physical Exam Physical Exam: GENERAL: Patient is ill appearing and unresponsive. HENT: Normocephalic. Atraumatic. ET tube in place. EYES: Pupils are fixed and dilated. NECK: Supple. Trachea is midline. CHEST/LUNGS: No spontaneous breath sounds. HEART/CARDIOVASCULAR: No spontaneous heart sounds. ABDOMEN: Morbidly obese habitus. SKIN: Skin is cool but dry. . NEURO: He is unresponsive to any verbal or painful stimuli. MUSCULOSKELETAL: No obvious deformities. ED Medical Decision Making - Medical Decision Making ACLS protocol was continued as soon as the patient arrived into bed 18 in the emergency department. He was immediately given a dose of Epinephrine and Sodium bicarbonate. He was already intubated and there appeared to be b/l breath sounds with bag ventilation with some chest rise and there was no air or breath sounds heard in the abdomen. He was placed on the surveillance system monitor and the Zole monitor. At his first pulse and rhythm check in the ED he was asystole. He received a total of three rounds of ACLS protocol with Epi given each round, along with one dose of bicarb and one dose of Calcium given. Each time the patient was pulseless and in asystole. There was an unknown downtime for this patient but he was at least pulseless for the 30+ minutes with EMS and the time in our emergency department, so close to 40-45 minutes. I took the bedside ultrasound during the third pulse and rhythm check and the patient's heart had zero movement or activity, including any type of squeeze or even fibrillation. At this time, time of was called at 632 AM. - Differential Diagnosis Dysrythmia, TN, PE, COPD Critical Care Time: Yes Critical care time in (mins) excluding proc time.: 15 Critical care attestation.: If time is entered above; I have spent that time in minutes in the direct care of this critically ill patient, excluding procedure time. Critical care time was spent on this patient in doing his original evaluation and supervision of ACLS protocol. Critical Care Time: 15 minutes ED Disposition Clinical Impression: Cardiac arrest Acute respiratory failure Qualifiers: Respiratory failure complication: unspecified whether with hypoxia or hypercapnia Qualified Code(s): J96.00 - Acute respiratory failure, unspecified whether with hypoxia or hypercapnia Disposition: DC-20 Is pt being admited?: No Time of Disposition: 07:01
== END 2019-04-08 12:56 ==
LOC: ED 06:19
DX: I46.9 Cardiac arrest, cause unspecified (principal); J96.00 Acute respiratory failure, unspecified whether with hypoxia or hypercapnia; I11.0 Hypertensive heart disease with heart failure; I50.9 Heart failure, unspecified; E11.9 Type 2 diabetes mellitus without complications; J45.909 Unspecified asthma, uncomplicated; G47.30 Sleep apnea, unspecified; Z87.891 Personal history of nicotine dependence
CPT/HCPCS: 99285; J0171